=== PATIENT | female | born 1970 | race Caucasian/White ===

== ENCOUNTER 2016-08-17 13:53 | Emergency (ER) | payer OTHER ==
[~2016-08-17] VITALS: Ht 154.9 cm; Wt 87.4 kg
[2016-08-17 14:20] VITALS: TEMP 36.8; Ht 154.9 cm; Wt 87.4 kg
[2016-08-17] MEDS ORDERED: GABA-112 PO (14:29)
[2016-08-17] MEDS ORDERED: SITA25TA PO (14:29)
[2016-08-17] MEDS ORDERED: METF-384 PO (14:29)
[2016-08-17] MEDS ORDERED: CANA1TAB PO (14:29)
[2016-08-17] MEDS ORDERED: CEPH500C PO (14:46)
--- NOTE | 2016-08-17 14:59 | EMERGENCY ROOM VISIT NOTE ---
History First contact with patient: 14:35 Chief Complaint: EYE ASSESSMENT Stated Complaint: LEFT EYE PAIN/RED AND PUFFY History of Present Illness The patient is a 46 year old female who presents to the Emergency Room with complaints of pain, redness and swelling of the left upper eyelid. The patient noticed the pain and swelling 2 days ago. Her daughter thinks it is a stye. She reports that the eye is irritated when blinking. She has not noticed any drainage, excessive tearing or blurred vision. The patient reports that she has had several styes in the same eye, but not at the same area. The patient rates her discomfort a 6 out of 10. Review of Systems 10 system review was performed and was negative except for pertinent positives and negatives as indicated in history of present illness Past Medical/Surgical History Medical Problems: (1) No significant past medical history Surgical Problems: (1) No history of previous surgery Family History FH: diabetes mellitus FH: hypertension Kidney stones Social History Smoking Status: Never Smoker Alcohol Use: none Marital Status: Occupation Status: unemployed Current/Historical Medications Scheduled Canagliflozin (Invokana), Unknown Dose PO DAILY Cephalexin Monohydrate (Keflex), 500 MG PO QID Gabapentin (Neurontin), Unknown Dose PO BID Metformin Hcl (Glucophage), 1,000 MG PO BID Sitagliptin Phosphate (Januvia), Unknown Dose PO DAILY Allergies Coded Allergies: No Known Allergies (Unverified , 08/17/16) Physical Exam Vital Signs Date Time Temp Pulse Resp B/P Pulse Ox O2 Delivery O2 Flow Rate FiO2 08/17/16 14:20 36.8 83 17 144/86 99 Room Air Right Eye Acuity: 20/20 (uncorrected) Left Eye Acuity: 20/25 (affected/uncorrected) Physical Exam CONSTITUTIONAL: Healthy and well nourished. Alert and oriented X 3 with positive affect. HEENT: Normocephalic, atraumatic. Pupils equal, round and reactive. No scleral icterus or significant conjunctival injection of the left eye. There is no purulent drainage. The patient has an internal hordeolum of the upper medial eyelid. The remainder of the eyelid is also edematous and erythematous. She has mild tenderness to palpation laterally of the upper eyelid. There is no additional periorbital edema. EOMs does not cause any discomfort. NECK: Full active range of motion without discomfort. LYMPHATICS: No cervical chain adenopathy. RESPIRATORY: Clear to auscultation bilaterally with no wheezing, crackles, rhonchi or stridor. CARDIOVASCULAR: Regular rate and rhythm with no murmurs, rubs or gallops. INTEGUMENTARY: No rash or other significant dermatologic conditions noted. NEUROLOGIC: No focal neurologic deficits noted. Medical Decision & Procedures ED Course Patient history and physical exam were performed. Nurse's notes were reviewed. Visual acuity is also normal. History and clinical exam findings are consistent with an internal hordeolum of the left upper eyelid. I am somewhat concerned about the amount of edema and erythema of the lateral margin of the lid, therefore I elected to also treat the patient with Keflex antibiotics. She was instructed to apply warm moist compress to the eye. Ibuprofen and Tylenol in alternating fashion as needed for pain. She was instructed to follow -up with her eye doctor if no significant improvement within the next week. The patient was happy with plan of care, voiced understanding of all discharge instructions, refused any analgesics, and denied any significant pain at the time of discharge. She was dispensed some Lacri-Lube that she may also use for discomfort. Medical Decision Impression Primary Impression: Hordeolum of left upper eyelid Departure Information Dispostion Home / Self-Care Prescriptions Cephalexin Monohydrate (Keflex) 500 Mg Cap 500 MG PO QID for 7 Days, #28 CAP Prov: Rick Gamble PA 08/17/16 Forms HOME CARE DOCUMENTATION FORM, IMPORTANT VISIT INFORMATION Patient Instructions My [facility], ED Hordeolum Additional Instructions Complete all Keflex antibiotics as prescribed. Apply warm moist compresses to help promote drainage. Ibuprofen 800 mg and/or Tylenol 1000 mg every 8 hours. You may also alternate these medications for more effective pain relief: Ibuprofen --4 HRS--> Tylenol --4 HRS--> ibuprofen --4 HRS--> Tylenol .... Follow-up with your eye doctor if symptoms are not improving within the next 5- 7 days. Problem Qualifiers Primary Impression: Hordeolum of left upper eyelid Hordeolum type: internum Qualified Codes: H00.024 - Hordeolum internum left upper eyelid
[2016-08-17] MEDS ORDERED: ARTIFICIAL TEARS OP OINT 3.5 GM TUBE OP ONE (15:00)
[2016-08-17 15:08] VITALS: BP 144/86; PULSE 83; O2SAT 99
== END 2016-08-17 15:09 | disposition home or self-care (01) ==
LOC: C.EDB 13:56 → C.EDD 15:09
DX: H00.024 Hordeolum internum left upper eyelid (principal); Z79.899 Other long term (current) drug therapy; Z83.3 Family history of diabetes mellitus; Z82.49 Family history of ischemic heart disease and other diseases of the circulatory system; Z84.1 Family history of disorders of kidney and ureter

== ENCOUNTER 2022-09-07 11:12 | Inpatient (IN) ==
[2022-09-07] MEDS ORDERED: VANCOMYCIN CONSULT ACTIVE PRN (11:34)
[2022-09-07] MEDS ORDERED: VANCOMYCIN HCL 1,750 MG in SODIUM CHLORIDE 0.9% 500 ML IV ONE (11:34)
[2022-09-07] MEDS ORDERED: cefTRIAXone SODIUM 2,000 MG/70 ML BAG IV STA (11:36)
--- NOTE | 2022-09-07 11:39 | Emergency Department Note ---
Impression & Plan Type 2 diabetes mellitus with right diabetic foot infection, Acute hyperglycemia, Cellulitis ED Provider Note NAME: VALENTIN ASHLEY AGE: 52 SEX: F : 1970 ARRIVES VIA: Walk-In INFORMANT: Patient ED PROVIDER(S): Johan Rao DO CHIEF COMPLAINT: infection of foot HPI: Patient is a 52-year-old female who presents ER with past medical history of diabetes and hypertension for infection of her right first metatarsal and distal aspect. Is open wound with surrounding erythema and bulging. Patient denies any headache or change in vision. She has been feeling hot and cold but no recorded fevers. No belly pain nausea vomiting or diarrhea. No dysuria urgency or frequency. Has had increased swelling over the past 24 hours. PAST MEDICAL HISTORY:See Below PAST SURGICAL HISTORY:See Below FAMILY HISTORY:See Below SOCIAL HISTORY:See Below HOME MEDICATIONS:See Below ALLERGIES:See Below VITALS:See Below PHYSICAL EXAMINATION: GENERAL: Sitting up in bed, alert, well appearing, well nourished, no distress, non-toxic EYE EXAM: normal conjunctiva. OROPHARYNX: no exudate, no erythema, lips, buccal mucosa, and tongue normal and mucous membranes are moist NECK: supple, no nuchal rigidity, no adenopathy, non-tender LUNGS: Clear to auscultation. Normal chest wall mechanics HEART: no murmurs, S1 normal and S2 normal ABDOMEN: abdomen soft, non-tender, normo-active bowel sounds, no masses, no doug ound or guarding. UPPER EXTREMITIES: upper extremities are grossly normal. LOWER EXTREMITIES: Flexion-extension bilateral hips knees ankles and EHL intact. Ulcer at the base of the first right metatarsal. Surrounding erythema and induration NEURO EXAM: Normal sensorium, cranial nerves II-XII grossly intact, normal speech, no gross weakness of arms, no gross weakness of legs. MEDICAL DECISION MAKING: Patient is a 52-year-old female who presents ER for wound on her right foot. She was seen by Dr. Mcmanus from podiatry as an outpatient referred over. IV was established blood work was obtained. External records were reviewed. Labs show leukocytosis of 15,000. No significant anemia. BMP with elevated glucose at 105. LFTs bilirubin lipase is unremarkable. COVID was negative. X-rays showed questionable osteo. Patient was given IV Rocephin and vancomycin. Updated bedside. Discussed with Dr. Orellana in regards to admission and further work-up. Discussed with Dr. Mcmanus as well in regards to treatment. He recommended admission IV antibiotics and he will consult. Triage Nursing notes reviewed. Limited review of prior medical records performed Vital Signs: reviewed and remarkable for no significant abnormalities Differential diagnosis: Cellulitis, abscess, MRSA infection, osteomyelitis, DVT, necrotizing fasciitis, dermatitis, drug eruption, allergic reaction, as well as other pathologies. ER treatment provided: See below Diagnostics interpreted by me include EKG and cardiac monitoring as listed below: -Cardiac Monitoring: An order was placed for continuous cardiac monitoring. The monitor shows a rate of 92 with sinus rhythm. -ECG: none -Laboratory studies:Interpreted by me as stated above in MDM and shown below. Imaging studies: Xrays: As interpreted by me: X-ray of the right foot shows questionable osteo CTs show: none Consultation(s): As described in MDM Procedures:none Critical Care: None Past Med/Surg History Medical History (Updated 09/07/22 @ 13:58 by Tiffanie Hoffmann PA-C) Eustachian tube dysfunction Social History Smoking Status: Never smoker Preferred Language: Filipino Feels Safe at Home: Yes Allergies Allergies Allergy/AdvReac Type Severity Reaction Status Date / Time No Known Allergies Allergy Unverified 09/07/22 12:53 Home Meds Home Medications Medication Instructions Recorded Confirmed canagliflozin 100 mg tablet 100 mg PO DAILY 09/07/22 09/07/22 (Invokana) diclofenac sodium 50 mg 50 mg PO TID 09/07/22 09/07/22 tablet,delayed release dulaglutide 1.5 mg/0.5 mL 1.5 mg subcut WE 09/07/22 09/07/22 subcutaneous pen injector (Trulicity) duloxetine 30 mg capsule,delayed 30 mg PO DAILY 09/07/22 09/07/22 release gabapentin 600 mg tablet 600 mg PO QID 09/07/22 09/07/22 insulin glargine 100 unit/mL (3 35 unit subcut BID 09/07/22 09/07/22 mL) subcutaneous pen (Lantus Solostar U-100 Insulin) losartan 25 mg tablet 25 mg PO DAILY 09/07/22 09/07/22 metformin 1,000 mg tablet 1,000 mg PO BID 09/07/22 09/07/22 simvastatin 10 mg tablet 10 mg PO DAILY 09/07/22 09/07/22 Results & Data (ED) Vital Signs Vital Signs - 24 hr 09/07/22 11:22 09/07/22 12:30 09/07/22 12:32 Temperature 36.5 C Temperature Source Temporal Artery Scan Pulse Rate 112 H 104 H 104 H Pulse Rate from SpO2 Sensor Pulse Rhythm Regular Respiratory Rate 20 20 Respiratory Effort / Characteristics Non-Labored Spontaneous Respiratory Depth Normal Blood Pressure 122/73 Blood Pressure Mean 89 Pulse Oximetry 96 96 Oxygen Delivery Method Room Air Room Air Sepsis New/Unexplained Change in Mental Status N/A Sepsis Action Taken by Nursing No Action Required 09/07/22 12:30 Temperature Temperature Source Pulse Rate 98 H Pulse Rate from SpO2 Sensor 96 H Pulse Rhythm Respiratory Rate 20 Respiratory Effort / Characteristics Respiratory Depth Blood Pressure 105/74 Blood Pressure Mean 84 Pulse Oximetry 95 Oxygen Delivery Method Sepsis New/Unexplained Change in Mental Status Sepsis Action Taken by Nursing Laboratory Data 09/07/22 12:20 09/07/22 12:20 Lab Results 09/07/22 09/07/22 09/07/22 Range/Units 12:18 12:20 12:20 WBC 15.63 H (4.8-10.8) K/ul RBC 4.54 (4.20-5.40) M/uL Hgb 14.4 (12.0-16.0) g/dl Hct 41.3 (37.0-47.0) % MCV 91.0 (80.0-100.0) fL MCH 31.7 (25.0-34.0) pg MCHC 34.9 (32.0-36.0) g/dL RDW Std Deviation 40.0 (36.4-46.3) fL RDW Coeff of [place] 12.1 (11.5-14.5) % Plt Count 180 (130-400) K/uL MPV 11.1 (9.4-12.4) fL Immature Gran % (Auto) 0.5 % Neut % (Auto) 82.2 % Lymph % (Auto) 8.5 % [place] % (Auto) 8.4 % Eos % (Auto) 0.1 % Baso % (Auto) 0.3 % Neut # (Auto) 12.86 H (1.40-6.50) K/uL Lymph # (Auto) 1.33 (1.2-3.4) K/uL [place] # (Auto) 1.31 H (0.11-0.59) K/uL Eos # (Auto) 0.01 (0-0.50) K/uL Baso # (Auto) 0.04 (0-0.2) K/uL Immature Gran # (Auto) 0.08 (0.01-0.20) K/uL Sodium 132 L (136-145) mmol/L Potassium 3.9 (3.5-5.1) mmol/L Chloride 98 (98-107) mmol/L Carbon Dioxide 24 (21-32) mmol/L Anion Gap 10 (3-11) BUN 11 (6-23) mg/dl Creatinine 1.00 (0.6-1.2) mg/dl Est Cr Clr Drug Dosing 65.4 ml/min Est GFR ( Amer) 74.5 ml/min Est GFR (Non-Af Amer) 64.3 ml/min BUN/Creatinine Ratio 11.0 (10-20) Glucose 315 H* (70-99(Fasting)) mg/dl Calcium 9.6 (8.6-10.3) mg/dl Total Bilirubin 2.9 H (0.2-1.0) mg/dl AST 14 (13-39) U/L ALT 14 (7-52) U/L Alkaline Phosphatase 67 (34-104) U/L Total Protein 7.9 (6.0-8.3) gm/dl Albumin 4.1 (3.4-5.0) gm/dl Globulin 3.8 (2.5-4.0) gm/dl Albumin/Globulin Ratio 1.1 (0.9-2) Lipase 25 (11-82) U/L SARS-CoV-2, RNA, NAAT NEGATIVE (NEGATIVE) Administered Medications Vancomycin HCl 1,750 mg/ (Sodium Chloride) 535 mls @ 200 mls/hr IV NOW ONE Stop: 09/07/22 14:14 Last Admin: 09/07/22 13:03 Dose: 200 mls/hr Documented By: VICKEY Discontinued Medications Ceftriaxone Sodium (Rocephin) 2,000 mg in 70 mls @ 140 mls/hr IV NOW STA Stop: 09/07/22 12:05 Last Infusion: 09/07/22 13:00 Dose: 0 mls/hr Documented By: Admin: 09/07/22 12:30 Dose: 140 mls/hr Documented By: VICKEY Imaging Data Radiologist's Impression: Toe X-Ray 09/07/22 11:39 XR toe(s) RT min 2V HISTORY: 52 years-old Female 1st metatarsal ulcer questionable osteo chronic right foot pain with soft tissue ulcer COMPARISON: None TECHNIQUE: 3 views of the right great toe FINDINGS: Hallux valgus with first metatarsal head bunion. 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 Moderate soft tissue swelling of the forefoot is most pronounced surrounding the first MTP joint. No acute fracture, dislocation or osseous erosion identified involving the first digit. Suspected subtle periarticular erosions within the second metatarsal head seen best on the oblique image. IMPRESSION: 1. Moderate soft tissue swelling without acute fracture, dislocation or osseous erosion identified within the first digit. 2. Hallux valgus with first metatarsal head bunion. 3. Suggestion of subtle periarticular erosions within the second metatarsal head. Correlate clinically to exclude an inflammatory or crystalline art hropathy. Acute osteomyelitis considered less likely. ACT 112: Negative or not required by law. The above report was generated using voice recognition software. It may contain grammatical, syntax or spelling errors. Electronically signed by: Chilo Shore M.D. 09/07/2022 12:26 PM Discharge Plan Visit Data Chief Complaint: Infection, Wound Stated Complaint: DIABETIC WOUND ON FOOT, INFECTION ED Provider: Johan Rao Discharge Problem: Type 2 diabetes mellitus with right diabetic foot infection, Acute hyperglycemia, Cellulitis Forms Stand Alone Forms: My [facility] [employer] Prescriptions Prescriptions: No Action insulin glargine [Lantus Solostar U-100 Insulin] 100 unit/mL (3 mL) insulin pen 35 unit SUBCUT BID gabapentin 600 mg tablet 600 mg PO QID simvastatin 10 mg tablet 10 mg PO DAILY metformin 1,000 mg tablet 1,000 mg PO BID losartan 25 mg tablet 25 mg PO DAILY diclofenac sodium 50 mg tablet,delayed release (DR/EC) 50 mg PO TID duloxetine 30 mg capsule,delayed release(DR/EC) 30 mg PO DAILY Invokana 100 mg tablet 100 mg PO DAILY Trulicity 1.5 mg/0.5 mL pen injector 1.5 mg SUBCUT WE Referrals Referrals: Spencer Son D.O. [Primary Care Provider] -
--- NOTE | 2022-09-07 12:28 | XRay Report ---
XR toe(s) RT min 2V HISTORY: 52 years-old Female 1st metatarsal ulcer questionable osteo chronic right foot pain with so ft tissue ulcer COMPARISON: None TECHNIQUE: 3 views of the right great toe FINDINGS: Hallux valgus with first metatarsal head bunion. 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 Moderate soft tissue swelling of the forefoot is most pronounced surrounding the first MTP joint. No acute fracture, dislocation or osseous erosion identified involving the first digit. Suspected subtle periarticular erosions within the second metatarsal head seen best on the oblique image. IMPRESSION: 1. Moderate soft tissue swelling without acute fracture, dislocation or osseous erosion identified wi thin the first digit. 2. Hallux valgus with first metatarsal head bunion. 3. Suggestion of subtle periarticular erosions within the second metatarsal head. Correlate clinicall y to exclude an inflammatory or crystalline arthropathy. Acute osteomyelitis considered less likely. ACT 112: Negative or not required by law. The above report was generated using voice recognition software. It may contain grammatical, syntax o r spelling errors. Electronically signed by: Chilo Shore M.D. 09/07/2022 12:26 PM
[2022-09-07 12:51] LABS: Basophils # (auto) 0.04 K/uL (0-0.2); Basophils % (auto) 0.3 %; Eosinophils # (auto) 0.01 K/uL (0-0.50); Eosinophils % (auto) 0.1 %; Hematocrit (blood only) 41.3 % (37.0-47.0); Hemoglobin 14.4 g/dl (12.0-16.0); Immature Granulocytes # (auto) 0.08 K/uL (0.01-0.20); Immature Granulocytes % (auto) 0.5 %; Lymphocytes # (auto) 1.33 K/uL (1.2-3.4); Lymphocytes % (auto) 8.5 %; Mean Corpuscular Hemoglobin 31.7 pg (25.0-34.0); Mean Corpuscular Hgb Conc 34.9 g/dL (32.0-36.0); Mean Platelet Volume 11.1 fL (9.4-12.4); Monocytes # (auto) 1.31 K/uL (0.11-0.59); Monocytes % (auto) 8.4 %; Neutrophils # (auto) 12.86 K/uL (1.40-6.50); Neutrophils % (auto) 82.2 %; Platelet Count 180 K/uL (130-400); RDW Coefficient of Variation 12.1 % (11.5-14.5); Red Blood Count 4.54 M/uL (4.20-5.40); White Blood Count 15.63 K/ul (4.8-10.8)
[2022-09-07 13:12] LABS: Albumin Globulin Ratio 1.1 (0.9-2); Albumin Level 4.1 gm/dl (3.4-5.0); Bilirubin,Total 2.9 mg/dl (0.2-1.0); Calcium 9.6 mg/dl (8.6-10.3); Creatinine Clr Calc Pharmacy 65.4 ml/min; Est GFR (African American) 74.5 ml/min; Est GFR (Non-African American) 64.3 ml/min; Globulin 3.8 gm/dl (2.5-4.0); Potassium 3.9 mmol/L (3.5-5.1); Total Protein 7.9 gm/dl (6.0-8.3)
--- NOTE | 2022-09-07 13:20 | History & Physical Report ---
Date of Service September 07, 2022 Assessment & Plan (1) Sepsis: (2) Type 2 diabetes mellitus with right diabetic foot infection: Plan: - Admit to med surg with tele - Follow Blood cx x 2, lactic acid ordered, WBC is 15.63, neuts 12.86, BP is soft at 105/74 and HR 104 - Will start NSS 150 ml/hr now, possible early sepsis with tachycardia and soft BP. Pt states she did take all her medication this morning including losartan and insulin. Pt has not eat today - Started vanc and ceftriaxone IV in the ER, continue - Consult ortho - Dr. Mcmanus for possible debridement, will make NPO at midnight and allow HH/DM diet today - Pt denies acute pain, can use tylenol if needed for such - Check CXR and EKG for preop purposes (3) Diabetes: Plan: - Glucose is > 300, will administer 10 U insulin now - Continue lantus at 15 U BID ( Reduced from 35) with ISS with accuchecks - Check A1C - Holding invokana, metformin and trulicity (takes on Mondays) (4) Hypertension: Plan: - Hold losartan with soft BP (5) Obesity (BMI 30-39.9): Plan: - BMI 36.5, diet and exercise to be encouraged DVT ppx: - billie santiagos CODE: Full code Dispo: From home, likely to remain in the hospital x 1-2 days A total of 75 minutes were spent with greater than 50% of that time face to face with the patient, personally reviewing all current laboratories, imaging studies, past medication reconciliation, outpatient chart review, and discussion with specialists to collaborate care for the patient with attending. Please see attending documentation for corrections and/or additions. History of Present Illness Chief Complaint: Foot infection Primary Care Provider: Spencer Son This is a 52-year-old female with PMHx of DM II, HTN, who presents from Dr. Mcmanus's office for infection of her right first metatarsal and distal aspect, XRay of the foot shows edema in the R first metatarsal with edema but shows possible bony abnormality of the second metatarsal head concerning for crystalline arthropathy vs acute osteomyelitis. Pt reports that last Monday (8d ago) she developed an area on her callous of the right first metatarsal head that became open and cracked. She states this has occurred in the past but normally heals. Yesterday the right forefoot region became red and swollen. She has been able to walk on it and denies neuropathy. She denies any fever, chills or sweats, but states in the past 3 days has had body aches, generalized fatigue and not felt herself. Pt called Dr. Mcmanus yesterday who saw her in the outpatient office this morning. She has been referred to the ER for antibiotic therapy. There is another area on the left foot, first metatarsal callous which is also cracked open, however isn't swollen or red. Pt is present with her at bedside, but nearly asleep. Of note, the patient has a ankle monitoring device on her left leg, states she is on probation x 4 months. She has made the surveillance sensor officer aware that she is here in the hospital. Denies any tobacco use, illicit drug use, marijuana or recreational drug use, or alcohol use. Allergies Allergy/AdvReac Type Severity Reaction Status Date / Time lisinopril Allergy Intermediate Cough Uncoded 09/07/22 14:30 Home Medications Medication Instructions Recorded Confirmed Type canagliflozin 100 mg tablet 100 mg PO DAILY 09/07/22 09/07/22 History (Invokana) diclofenac sodium 50 mg 50 mg PO TID 09/07/22 09/07/22 History tablet,delayed release dulaglutide 1.5 mg/0.5 mL 1.5 mg subcut WE 09/07/22 09/07/22 History subcutaneous pen injector (Trulicity) duloxetine 30 mg capsule,delayed 30 mg PO DAILY 09/07/22 09/07/22 History release gabapentin 600 mg tablet 600 mg PO QID 09/07/22 09/07/22 History insulin glargine 100 unit/mL (3 35 unit subcut BID 09/07/22 09/07/22 History mL) subcutaneous pen (Lantus Solostar U-100 Insulin) losartan 25 mg tablet 25 mg PO DAILY 09/07/22 09/07/22 History metformin 1,000 mg tablet 1,000 mg PO BID 09/07/22 09/07/22 History simvastatin 10 mg tablet 10 mg PO DAILY 09/07/22 09/07/22 History Past Med/Surg History Medical History (Updated 09/07/22 @ 20:25 by Karolina Orellana DO) Diabetes Eustachian tube dysfunction Hypertension Surgical History (Updated 09/07/22 @ 14:15 by Tiffanie Hoffmann PA-C) History of bunionectomy of left great toe Hx of tubal ligation Family History (Updated 09/07/22 @ 14:16 by Tiffanie Hoffmann PA-C) Mother Diabetes Social History (Updated 09/07/22 @ 14:16 by Tiffanie Hoffmann PA-C) Smoking Status: Never smoker Hx Alcohol Use: No Preferred Language: [place] Feels Safe at Home: Yes Review of Systems Review of Systems: Constitutional: No fever, sweats or chills, + generalized ill feeling Eyes: No diplopia, no worsening or blurred vision ENT: normal hearing, no trouble swallowing, + partial teeth plate Respiratory: No cough, sputum, dyspnea at rest or on exertion Cardiovascular: No chest pain, tightness or palpitations Abdomen: No pain, nausea, vomiting, diarrhea or constipation Musculoskeletal: R foot with callous with open wound on plantar surface, as per HPI, Left foot with cracked callous on it, No joint pain, calf pain, swelling Neurologic: No weakness, numbness/tingling, or balance problems Psychiatric: + anxiety and depression on medication Skin: No rash or itch Physical Exam Physical Exam: General: awake, alert, no apparent distress, + obese with BMI of 36.5 Head: Normocephalic, atraumatic ENT: PERRL, EOMI, no pharyngeal exudate, mucous membranes moist Chest: Clear to auscultation, on room air, no adventitious breath sounds Cardiac: Regular rate and rhythm, no murmur, no JVD, normal peripheral pulses, good capillary refill Abdominal: NABS x 4 quadrants, soft, nondistended, nontender to palpation, no rebound or guarding Extremities: R forefoot erythematous, edema over the 1st right metarsal region, + open wound on plantar surface of the foot about 1 cm in diameter, black in the middle, no purulent material draining from such, increased ecchymosis on the medial side of the foot proximal to the metatarsal head. Left foot callous is cracked, no erythema or edema. Let ankle with house arrest bracelet in place. Otherwise normal inspection, no peripheral edema or erythema, calfs nontender to palpation Psych: Normal mood and affect Neuro: AAO x 3, strength intact bilaterally and rated 5/5, no motor deficits, speech is clear, no peripheral sensory deficits Results & Data Results & Data Vital Signs (Past 12 Hours) Vital Signs Temp Pulse Resp BP Pulse Ox O2 Del Method 09/07/22 12:30 98 H 20 105/74 95 09/07/22 12:32 104 H 09/07/22 12:30 104 H 20 96 Room Air 09/07/22 11:22 36.5 C 112 H 20 122/73 96 Room Air Laboratory Results 09/07/22 12:20 Aerobic Blood Culture - Pending Blood Anaerobic Blood Culture - Pending 09/07/22 12:21 Aerobic Blood Culture - Pending Blood Anaerobic Blood Culture - Pending 09/07/22 09/07/22 09/07/22 12:20 12:20 12:18 WBC 15.63 H RBC 4.54 Hgb 14.4 Hct 41.3 MCV 91.0 MCH 31.7 MCHC 34.9 RDW Std Deviation 40.0 RDW Coeff of [place] 12.1 Plt Count 180 MPV 11.1 Immature Gran % (Auto) 0.5 Neut % (Auto) 82.2 Lymph % (Auto) 8.5 Chase % (Auto) 8.4 Eos % (Auto) 0.1 Baso % (Auto) 0.3 Neut # (Auto) 12.86 H Lymph # (Auto) 1.33 [place] # (Auto) 1.31 H Eos # (Auto) 0.01 Baso # (Auto) 0.04 Immature Gran # (Auto) 0.08 Sodium 132 L Potassium 3.9 Chloride 98 Carbon Dioxide 24 Anion Gap 10 BUN 11 Creatinine 1.00 Est Cr Clr Drug Dosing 65.4 Est GFR ( Amer) 74.5 Est GFR (Non-Af Amer) 64.3 BUN/Creatinine Ratio 11.0 Glucose 315 H* Calcium 9.6 Total Bilirubin 2.9 H AST 14 ALT 14 Alkaline Phosphatase 67 Total Protein 7.9 Albumin 4.1 Globulin 3.8 Albumin/Globulin Ratio 1.1 Lipase 25 SARS-CoV-2, RNA, NAAT NEGATIVE Diagnostic Findings Toe X-Ray 09/07/22 11:39 XR toe(s) RT min 2V HISTORY: 52 years-old Female 1st metatarsal ulcer questionable osteo chronic right foot pain with soft tissue ulcer COMPARISON: None TECHNIQUE: 3 views of the right great toe FINDINGS: Hallux valgus with first metatarsal head bunion. 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 Moderate soft tissue swelling of the forefoot is most pronounced surrounding the first MTP joint. No acute fracture, dislocation or osseous erosion identified involving the first digit. Suspected subtle periarticular erosions within the second metatarsal head seen best on the oblique image. IMPRESSION: 1. Moderate soft tissue swelling without acute fracture, dislocation or osseous erosion identified within the first digit. 2. Hallux valgus with first metatarsal head bunion. 3. Suggestion of subtle periarticular erosions within the second metatarsal head. Correlate clinically to exclude an inflammatory or crystalline arthropathy. Acute osteomyelitis considered less likely. ACT 112: Negative or not required by law. The above report was generated using voice recognition software. It may contain grammatical, syntax or spelling errors. Electronically signed by: Chilo Shore M.D. 09/07/2022 12:26 PM Code Status & VTE Plan Code Status Full code VTE Prophylaxis Plan VTE Prophylaxis will be ordered: Yes Supervising Physician Co-Signing Physician Notes I have seen and examined the patient and have discussed the case with the provider above. I agree with the assessment and plan as stated. Diabetic female presents with 3 days of illness and erythema/swelling in her right foot. There is a plantar wound as a likely source on the right foot. She has another plantar wound on the left foot that is not inflamed or infectious appearing. She is tachycardic but otherwise in no acute distress. Physical exam is otherwise unremarkable aside from the erythema which is spreading to her distal ankle on the dorsal side of her foot. There is no drainage of the wound at this time. Work-up includes CBC revealing leukocytosis CBC revealing leukocytosis with a left shift, hyponatremia with a sodium of 132 and otherwise electrolytes and kidney function are normal. She has hyperglycemia and is an uncontrolled diabetic at baseline. She has an elevated total bilirubin of 2.9. Outpatient records are unable for review at this time. Otherwise LFTs are normal. There is no evidence of obstructive jaundice or pain in her abdomen at this time. She has evidence of bacteria on urinalysis however this may be a contaminant. 1. diabetic foot wound with infection and cellulitis of right foot. 2. Possible sepsis-resuscitated 3. Uncontrolled diabetes with hyperglycemia 4. Hyperbilirubinemia Agree with broad-spectrum antibiotics pending culture results and clinical improvement. Appreciate podiatry input regarding her foot wound. We will continue aggressive insulin management for euglycemia. Evaluate medications for adjustment at discharge if needed. Notably patient states that Ozempic worked better for her than insulin, however, there are financial obstacles for her to receiving it at this time. Repeat CMP in a.m. to monitor bilirubin and electrolytes. Esteban, DO
[2022-09-07] MEDS ORDERED: SODIUM CHLORIDE 0.9% 500 ML IV SCH (14:00)
[2022-09-07] MEDS ORDERED: INSULIN ASPART PER UNIT CHARGE SC STA (14:21)
--- NOTE | 2022-09-07 14:46 | XRay Report ---
XR chest 1V portable HISTORY: 52 years-old Female preop preoperative exam COMPARISON: None TECHNIQUE: AP view of the chest FINDINGS: Cardiomediastinal and hilar silhouettes are within normal limits. No pneumothorax, pleural effusion, airspace consolidation or pulmonary edema. Bones of the chest appear grossly intact. IMPRESSION: No acute process. ACT 112: Negative or not required by law. The above report was generated using voice recognition software. It may contain grammatical, syntax o r spelling errors. Electronically signed by: Chilo Shore M.D. 09/07/2022 2:45 PM
--- NOTE | 2022-09-07 16:35 | Electrocardiogram Report ---
Test Reason : Blood Pressure : / mmHG Vent. Rate : 098 BPM Atrial Rate : 098 BPM P-R Int : 146 ms QRS Dur : 082 ms QT Int : 356 ms P-R-T Axes : 029 -01 018 degrees QTc Int : 454 ms Normal sinus rhythm Normal ECG No previous ECGs available Confirmed by Osorio Mattson ([id number]) on 09/07/2022 4:34:40 PM Referred By: REFERRED SELF Confirmed By:Osorio Mattson
[2022-09-07 18:25] LABS: Appearance Urine Cloudy (Clear); Bacteria Urine Automated 1+ (Negative); Bilirubin Urine Negative (Negative); Blood Urine Negative (Negative); Color Urine Orange; Epithelial Cell Urine Auto >30 /lpf (0-5); Glucose Urine UA 3+ (Negative); Ketones Urine Trace (Negative); Leukocyte Esterase Urine Trace (Negative); Nitrite Urine Negative (Negative); Protein Urine Negative (Negative); RBC Urine Automated 0-4 /hpf (0-4); Specific Gravity Urine 1.045 (1.000-1.030); Urobilinogen Urine Negative (Negative)
[2022-09-07] MEDS: INSULIN ASPART PER UNIT CHARGE SC SCH ×2 (18:56→20:48)
[2022-09-07] MEDS ORDERED: ONDANSETRON INJ 2 MG/ML 2 ML VIAL IV PRN (19:21)
[2022-09-07] MEDS ORDERED: GLUCOSE 10 TAB/TUBE PO PRN (19:21)
[2022-09-07] MEDS ORDERED: CARBOHYDRATES FOR HYPOGLYCEMIA PO PRN (19:21)
[2022-09-07] MEDS ORDERED: MAGNESIUM HYDROXIDE SUSP 30 ML UDC PO PRN (19:21)
[2022-09-07] MEDS ORDERED: INSULIN ASPART PER UNIT CHARGE SC SCH (19:21)
[2022-09-07] MEDS ORDERED: GLUCAGON FOR INJ 1 MG VIAL SQ PRN (19:21)
[2022-09-07] MEDS ORDERED: POLYETHYLENE (MIRALAX) 17 GM PACK PO PRN (19:21)
[2022-09-07] MEDS ORDERED: ALUMINUM/MAGNESIUM SUSP 30 ML UDC PO PRN (19:21)
[2022-09-07] MEDS ORDERED: GLUCOSE 40% GEL 15 GM TUBE PO PRN (19:21)
[2022-09-07] MEDS ORDERED: DEXTROSE 50% 50 ML SYRINGE IV PRN (19:21)
--- NOTE | 2022-09-07 19:39 | Pharmacy Report ---
Pharmacy PK ABX Note - Date of Service September 07, 2022 - Assessment and Plan Assessment 52 year old F receiving IV Vancomycin for treatment of right DM foot infection. PMH DM II, HTN. Blood and urine cultures pending WBC 15.6, afebrile XRay of the foot shows edema in the R first metatarsal with edema but shows possible bony abnormality of the second metatarsal head concerning for crystalline arthropathy vs acute osteomyelitis. Plan Vancomycin * Loading dose: 1750 mg IV x 1 * Maintenance dose: 750 mg IV every 12 hours * Regimen is predicted to achieve target AUC/MARGARETTE of 400-600 mg/L.hr * Will order random level Monday morning if therapy continues and no changes in SCr/maintenance dose. Pharmacy will continue to follow and will adjust dose/frequency as necessary. Thank you. Pharmacy has transitioned to AUC monitoring for vancomycin. AUC/MARGARETTE is the preferred PK/PD target and is associated with decreased risk of nephrotoxicity compared to traditional trough targets.
[2022-09-07] MEDS: SODIUM CHLORIDE 0.9% 1000ML 1,000 ML IV SCH (20:13)
[2022-09-07] MEDS: VANCOMYCIN HCL 750 MG in SODIUM CHLORIDE 0.9% 250 ML IV SCH (20:45)
[2022-09-07] MEDS: GABAPENTIN 600 MG TAB PO SCH ×2 (20:47)
[2022-09-07] MEDS: LANTUS PER UNIT CHARGE SQ SCH (20:48)
--- NOTE | 2022-09-07 22:16 | Orthopedic Consultation ---
Date of Consultation September 07, 2022 Assessment & Plan (1) Type 2 diabetes mellitus with right diabetic foot infection: Patient seen, evaluated, and treated. Reviewed x-ray and x-ray findings. Ordered MRI for further evaluation. Surgical debridement has not been excluded. Thank you for allowing me to participate in the care of this Patient. History of Present Illness Attending Physician: Karolina Orellana DO History of Present Illness Patient is a 52-year-old femaleseen for right foot diabetic foot ulcer. Patient has a past medical history of DM II, and HTN. Patient has history of DFUs. She notes wound open for one week. Patient states past 3 days has had feeling sick with body aches, generalized fatigue and not felt herself. Allergies Allergy/AdvReac Type Severity Reaction Status Date / Time lisinopril Allergy Intermediate Cough Uncoded 09/07/22 14:30 Home Medications Medication Instructions Recorded Confirmed Type canagliflozin 100 mg tablet 100 mg PO DAILY 09/07/22 09/07/22 History (Invokana) diclofenac sodium 50 mg 50 mg PO TID 09/07/22 09/07/22 History tablet,delayed release dulaglutide 1.5 mg/0.5 mL 1.5 mg subcut WE 09/07/22 09/07/22 History subcutaneous pen injector (Trulicity) duloxetine 30 mg capsule,delayed 30 mg PO DAILY 09/07/22 09/07/22 History release gabapentin 600 mg tablet 600 mg PO QID 09/07/22 09/07/22 History insulin glargine 100 unit/mL (3 35 unit subcut BID 09/07/22 09/07/22 History mL) subcutaneous pen (Lantus Solostar U-100 Insulin) losartan 25 mg tablet 25 mg PO DAILY 09/07/22 09/07/22 History metformin 1,000 mg tablet 1,000 mg PO BID 09/07/22 09/07/22 History simvastatin 10 mg tablet 10 mg PO DAILY 09/07/22 09/07/22 History Patient History Medical History Diabetes Eustachian tube dysfunction Hypertension Surgical History History of bunionectomy of left great toe Hx of tubal ligation Family History Mother Diabetes Social History Smoking Status: Never smoker Hx Alcohol Use: No Hx Substance Use: No Preferred Language: Macedonian Beliefs That Will Affect Care: None Current Living Situation: Spouse Feels Safe at Home: Yes Review of Systems Review of Systems: All systems reviewed & are unremarkable except as noted in HPI & below Physical Exam Constitutional: well developed and well nourished Neck: normal visual inspection Respiratory: normal respiratory effort Cardiovascular: Rate/Rhythm: regular rate and regular rhythm Pedal pulses palpable Musculoskeletal: Hallux abducto valgus bilateral Skin: Focused Exam: Wound location:Right submet 1 Wound base color and depth:Full-thickness probing to bone wound size (cm):2.0 x 2.0 x 1.5 cm Odor:Malodorous Drainage:Moderate serous drainage Undermining:None Borders:Macerated Wound location:Left submet 1 Wound base color and depth:Full-thickness Wound size (cm):1.1x 1.1 x 0.2 cm Odor:No malodor Drainage:None Undermining:None Borders:Hyperkeratotic Neurologic: Absent epicritic senstation Psychiatric: Orientation: alert and oriented x 3 Results & Data Vital Signs (Past 12 Hours) Vital Signs Temp Pulse Pulse Resp BP BP Pulse Ox 09/07/22 21:45 96 H 09/07/22 19:49 36.8 C 87 18 112/74 99 09/07/22 17:30 89 18 128/78 99 09/07/22 16:06 87 16 108/65 96 09/07/22 15:07 99 H 16 111/65 96 09/07/22 12:30 98 H 20 105/74 95 09/07/22 12:32 104 H 09/07/22 12:30 104 H 20 96 09/07/22 11:22 36.5 C 112 H 20 122/73 96 O2 Del Method 09/07/22 21:45 09/07/22 19:49 Room Air 09/07/22 17:30 Room Air 09/07/22 16:06 Room Air 09/07/22 15:07 Room Air 09/07/22 12:30 09/07/22 12:32 09/07/22 12:30 Room Air 09/07/22 11:22 Room Air Diagnostic Findings XR toe(s) RT min 2V HISTORY: 52 years-old Female 1st metatarsal ulcer questionable osteo chronic right foot pain with soft tissue ulcer COMPARISON: None TECHNIQUE: 3 views of the right great toe FINDINGS: Hallux valgus with first metatarsal head bunion. 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 Moderate soft tissue swelling of the forefoot is most pronounced surrounding the first MTP joint. No acute fracture, dislocation or osseous erosion identified involving the first digit. Suspected subtle periarticular erosions within the second metatarsal head seen best on the obliqu e image. IMPRESSION: 1. Moderate soft tissue swelling without acute fracture, dislocation or osseous erosion identified within the first digit. 2. Hallux valgus with first metatarsal head bunion. 3. Suggestion of subtle periarticular erosions within the second metatarsal head. Correlate clinically to exclude an inflammatory or crystalline arthropathy. Acute osteomyelitis considered less likely. ACT 112: Negative or not required by law. The above report was generated using voice recognition software. It may contain grammatical, syntax or spelling errors. Electronically signed by: Chilo Shore M.D.
[2022-09-07] MEDS: ACETAMINOPHEN 325 MG TAB PO PRN (23:36)
[2022-09-08] MEDS: SODIUM CHLORIDE 0.9% 1000ML 1,000 ML IV SCH ×2 (03:43→11:41)
[2022-09-08 06:00] LABS: Hematocrit (blood only) 35.7 % (37.0-47.0); Hemoglobin 12.6 g/dl (12.0-16.0); Mean Corpuscular Hemoglobin 32.1 pg (25.0-34.0); Mean Corpuscular Hgb Conc 35.3 g/dL (32.0-36.0); Mean Corpuscular Volume 91.1 fL (80.0-100.0); Mean Platelet Volume 10.9 fL (9.4-12.4); Platelet Count 147 K/uL (130-400); RDW Coefficient of Variation 12.3 % (11.5-14.5); RDW Standard Deviation 40.6 fL (36.4-46.3); Red Blood Count 3.92 M/uL (4.20-5.40)
[2022-09-08 06:30] LABS: Albumin Globulin Ratio 1.1 (0.9-2); Albumin Level 3.4 gm/dl (3.4-5.0); BUN Creatinine Ratio 17.5 (10-20); Bilirubin,Total 1.5 mg/dl (0.2-1.0); Calcium 8.3 mg/dl (8.6-10.3); Creatinine Clr Calc Pharmacy 104.1 ml/min; Est GFR (African American) 118.7 ml/min; Est GFR (Non-African American) 102.4 ml/min; Globulin 3.1 gm/dl (2.5-4.0); Potassium 3.5 mmol/L (3.5-5.1); Total Protein 6.5 gm/dl (6.0-8.3)
[2022-09-08] MEDS: INSULIN ASPART PER UNIT CHARGE SC SCH ×4 (07:53→21:23)
[2022-09-08] MEDS: GABAPENTIN 600 MG TAB PO SCH ×4 (08:17→21:31)
[2022-09-08] MEDS: ACETAMINOPHEN 325 MG TAB PO PRN (08:17)
[2022-09-08] MEDS: VANCOMYCIN HCL 750 MG in SODIUM CHLORIDE 0.9% 250 ML IV SCH (08:18)
[2022-09-08] MEDS: SIMVASTATIN 10 MG TAB PO SCH (08:18)
[2022-09-08] MEDS: LOSARTAN POTASSIUM 25 MG TAB PO SCH (08:18)
[2022-09-08] MEDS: DULoxetine HCL 30 MG CAP PO SCH (08:18)
[2022-09-08] MEDS: LANTUS PER UNIT CHARGE SQ SCH ×2 (08:18→21:31)
[2022-09-08 08:26] LABS: Estimated Average Glucose 212 mg/dl
--- NOTE | 2022-09-08 08:38 | Pharmacy Report ---
Pharmacy PK ABX Note - Date of Service September 08, 2022 - Assessment and Plan Assessment 09/08: SCr 0.63 toady, cultures pending, leukocytosis resolved. With improvement in renal function, current dose is predicting below target AUC/MARGARETTE. Will adjust 09/07: 52 year old F receiving IV Vancomycin for treatment of right DM foot infection. PMH DM II, HTN. Blood and urine cultures pending WBC 15.6, afebrile XRay of the foot shows edema in the R first metatarsal with edema but shows possible bony abnormality of the second metatarsal head concerning for crystalline arthropathy vs acute osteomyelitis. Plan 09/08: Adjust to 1500 mg q12H. Will get random level 4/7 AM 09/07: Vancomycin * Loading dose: 1750 mg IV x 1 * Maintenance dose: 750 mg IV every 12 hours * Regimen is predicted to achieve target AUC/MARGARETTE of 400-600 mg/L.hr * Will order random level Monday morning if therapy continues and no changes in SCr/maintenance dose. Pharmacy will continue to follow and will adjust dose/frequency as necessary. Thank you. Pharmacy has transitioned to AUC monitoring for vancomycin. AUC/MARGARETTE is the preferred PK/PD target and is associated with decreased risk of nephrotoxicity compared to traditional trough targets.
[2022-09-08] MEDS: cefTRIAXone SODIUM 2,000 MG in DEXTROSE 5% 50 ML IV SCH (11:42)
[2022-09-08] MEDS: VANCOMYCIN HCL 1,500 MG in SODIUM CHLORIDE 0.9% 500 ML IV SCH (13:42)
--- NOTE | 2022-09-08 15:55 | Hospitalist Progress Note ---
Date of Service September 08, 2022 Assessment & Plan (1) Sepsis: (2) Type 2 diabetes mellitus with right diabetic foot infection: Plan: Right foot diabetic ulcer --Toe X ray:Moderate soft tissue swelling without acute fracture, dislocation or osseous erosion identified within the first digit. Hallux valgus with first metatarsal head bunion. Suggestion of subtle periarticular erosions within the second metatarsal head. Correlate clinically to exclude an inflammatory or crystalline arthropathy. Acute osteomyelitis considered less likely. -- Blood culture pending MRI foot pending Empirically on vancomycin, Rocephin Appreciate Podiatry Input Continue wound care Continue IV fluids (3) Diabetes: Plan: DM II Uncontrolled HbA1c 9.0 - Continue lantus at 15 U BID ( Reduced from 35) with ISS with accuchecks - Hold home meds-- invokana, metformin and trulicity (takes on Mondays) --Continue insulin per protocol Monitor BGs (4) Hypertension: Plan: - continue losartan (5) Obesity (BMI 30-39.9): Plan: - BMI 36.5, diet and exercise to be encouraged DVT ppx: - teds, scds for now CODE STATUS: Full code Admission and Anticipated Discharge Date Admission Date: September 07, 2022 Subjective Patient is seen and examined at bedside Denies any pain of the right foot Also denies any chest pain, dyspnea, dizziness, nausea, abdominal pain No other complaints Review of Systems Review of Systems: All systems reviewed & are unremarkable except as noted in Subjective Physical Exam Physical Exam: Physical Exam: Vitals signs as noted above General Appearance:Obese, no apparent distress Head: normocephalic, Atraumatic Eyes: normal inspection, EOMI Neck: supple, Trachea midline Respiratory/Chest: Normal breath sounds, CTA, No accessory muscle use Cardiovascular: S1, S2, No murmur Abdomen/GI:Soft, Non tender, Bowel sounds present Extremities/Musculoskeletal:normal inspection, pedal edema, + erythematous, macerated, nontender right foot ulcer at the base of first metatarsal Neurologic/Psych:AAOX3, grossly no focal neurological deficits Skin: normal color, warm Results & Data Results & Data Vital Signs (Past 12 Hours) Vital Signs Temp Pulse Pulse Resp BP Pulse Ox O2 Del Method 09/08/22 11:31 36.7 C 95 H 16 108/74 95 Room Air 09/08/22 07:30 90 09/08/22 07:39 37.4 C 93 H 18 123/76 98 Room Air 09/08/22 04:00 36.8 C 87 19 103/68 98 Room Air Laboratory Results Short CBC 09/08/22 Range/Units 05:24 WBC 10.60 (4.8-10.8) K/ul Hgb 12.6 (12.0-16.0) g/dl Hct 35.7 L (37.0-47.0) % Plt Count 147 (130-400) K/uL BMP 09/08/22 05:24 Sodium 138 Potassium 3.5 Chloride 107 Carbon Dioxide 23 BUN 11 Creatinine 0.63 D Glucose 105 H Calcium 8.3 L Liver Function 09/08/22 Range/Units 05:24 Total Bilirubin 1.5 H (0.2-1.0) mg/dl AST 12 L (13-39) U/L ALT 10 (7-52) U/L Alkaline Phosphatase 49 (34-104) U/L Albumin 3.4 (3.4-5.0) gm/dl Urine 09/07/22 Range/Units 17:51 Urine Color [place] Urine Appearance Cloudy A (Clear) Urine pH 5.0 (4.5-7.5) Ur Specific [place] 1.045 H (1.000-1.030) Urine Protein Negative (Negative) Urine Glucose (UA) 3+ H (Negative)
[2022-09-08] MEDS ORDERED: GADOBUTROL 65ML VIAL IV ONE (17:29)
--- NOTE | 2022-09-08 18:08 | Magnetic Resonance Report ---
MR foot RT wo/w con CLINICAL HISTORY: Right foot wound. Evaluate for osteomyelitis. COMPARISON STUDY: Right first toe radiographs September 07, 2022. TECHNIQUE: Utilizing a 1.5 Becky magnet and dedicated coil, multiplanar, multi echo imaging of the ri t forefoot was performed pre and postcontrast administration. Intravenous injection of 8.5 cc of Ga davist was uneventful. FINDINGS: Hallux valgus deformity is noted. Tarsometatarsal joints are intact. No fracture within the right forefoot is present. A marker was placed on the skin at site of wound. This overlies the media l aspect of the right forefoot. There is corresponding skin thickening and extensive subcutaneous amy ma and enhancement consistent with cellulitis. Associated 2.2 x 0.6 cm T2 hyperintense focus on the s kin may reflect a blister. In addition, there is subjacent hypoenhancing focus which measures 3 x 1.3 cm. No well-defined fluid collection is identified on the T2-weighted sequences. Note is made of a w ell demarcated 1.2 cm T2 hyperintense enhancing focus of the medial aspect of the right first metatar diana head. This is probably degenerative. There is moderate osteophytosis of the right first metatarso phalangeal joint. Note is made of significant increased T2 signal with diminished T1 signal and enhan cement within the distal phalanx of the right first toe. This favors acute osteomyelitis. Otherwise, T1 signal is preserved within the right forefoot. Additional multifocal degenerative changes within t he midfoot are present. IMPRESSION: 1. Findings suggestive of acute osteomyelitis within the distal phalanx of the right first toe. 2. Additional multifocal marrow signal abnormalities, as described above. These are probably degenera tive. 3. Wound of the medial right forefoot with extensive associated cellulitis. Associated subcutaneous 3 x 1.3 cm ill-defined hypoenhancing focus. This may reflect a nonviable tissue or phlegmon. A develop ing abscess is within the differential although considered less likely. 4. Hallux valgus. 5. Moderate degenerative changes within the right midfoot and forefoot. ACT 112: Negative or not required by law. Electronically signed by: Zack Zuleta M.D. 09/08/2022 6:07 PM
--- NOTE | 2022-09-08 21:36 | Orthopedic Progress Note ---
Date of Service September 08, 2022 Assessment & Plan (1) Type 2 diabetes mellitus with right diabetic foot infection: Plan: Patient seen, evaluated, and treated. Reviewed MRI images and MRI results. Discussed resection of non-viable bone and soft tissue right foot. Will contact OR for Monday evening availability. (2) Osteomyelitis of right foot: Admission and Anticipated Discharge Date Admission Date: September 07, 2022 Subjective Patient is seen and examined at bedside. Denies any pain of the right foot. No other complaints Review of Systems Review of Systems: All systems reviewed & are unremarkable except as noted in Subjective Physical Exam Constitutional: well developed and well nourished Neck: normal visual inspection Respiratory: normal respiratory effort Cardiovascular: Rate/Rhythm: regular rate and regular rhythm Skin: Focused Exam: Wound location:Right submet 1 Wound base color and depth:Full-thickness probing to bone wound size (cm):2.0 x 2.0 x 1.5 cm Odor:Malodorous Drainage:Moderate serous drainage Undermining:None Borders:Macerated Wound location:Left submet 1 Wound base color and depth:Full-thickness Wound size (cm):1.1x 1.1 x 0.2 cm Odor:No malodor Drainage:None Undermining:None Borders:Hyperkeratotic Neurologic: Absent epicritic sensation. Psychiatric: Orientation: alert and oriented x 3 Results & Data Vital Signs (Past 12 Hours) Vital Signs Temp Pulse Pulse Resp BP BP Pulse Ox 09/08/22 19:00 37.2 C 85 18 135/75 96 09/08/22 19:00 36.8 C 106 H 18 130/81 97 09/08/22 15:00 91 H 09/08/22 11:31 36.7 C 95 H 16 108/74 95 O2 Del Method O2 Flow Rate 09/08/22 19:00 Nasal Cannula 2 09/08/22 19:00 Room Air 09/08/22 15:00 09/08/22 11:31 Room Air Diagnostic Findings MR foot RT wo/w con CLINICAL HISTORY: Right foot wound. Evaluate for osteomyelitis. COMPARISON STUDY: Right first toe radiographs September 07, 2022. TECHNIQUE: Utilizing a 1.5 Becky magnet and dedicated coil, multiplanar, multi echo imaging of the right forefoot was performed pre and postcontrast administration. Intravenous injection of 8.5 cc of Gadavist was uneventful. FINDINGS: Hallux valgus deformity is noted. Tarsometatarsal joints are intact. No fracture within the right forefoot is present. A marker was placed on the skin at site of wound. This overlies the medial aspect of the right forefoot. There is corresponding skin thickening and extensive subcutaneous edema and enhancement consistent with cellulitis. Associated 2.2 x 0.6 cm T2 hyperintense focus on the skin may reflect a blister. In addition, there is subjacent hypoenhancing focus which measures 3 x 1.3 cm. No well-defined fluid collection is identified on the T2-weighted sequences. Note is made of a well demarcated 1.2 cm T2 hyperintense enhancing focus of the medial aspect of the right first metatarsal head. This is probably degenerative. There is moderate osteophytosis of the right first metatarsophalangeal joint. Note is made of significant increased T2 signal with diminished T1 signal and enhancement within the distal phalanx of the right first toe. This favors acute osteomyelitis. Otherwise, T1 signal is preserved within the right forefoot. Additional multifocal degenerative changes within the midfoot are present. IMPRESSION: 1. Findings suggestive of acute osteomyelitis within the distal phalanx of the right first toe. 2. Additional multifocal marrow signal abnormalities, as described above. These are probably degenerative. 3. Wound of the medial right forefoot with extensive associated cellulitis. Associated subcutaneous 3 x 1.3 cm ill-defined hypoenhancing focus. This may reflect a nonviable tissue or phlegmon. A developing abscess is within the differential although considered less likely. 4. Hallux valgus. 5. Moderate degenerative changes within the right midfoot and forefoot. ACT 112: Negative or not required by law. Electronically signed by: Zack Zuleta M.D.
[2022-09-09] MEDS: SODIUM CHLORIDE 0.9% 1000ML 1,000 ML IV SCH ×4 (00:16→19:55)
[2022-09-09] MEDS: VANCOMYCIN HCL 1,500 MG in SODIUM CHLORIDE 0.9% 500 ML IV SCH ×2 (01:25→13:46)
[2022-09-09 07:03] LABS: Hematocrit (blood only) 34.6 % (37.0-47.0); Hemoglobin 12.1 g/dl (12.0-16.0); Mean Corpuscular Hemoglobin 31.7 pg (25.0-34.0); Mean Corpuscular Volume 90.6 fL (80.0-100.0); Mean Platelet Volume 10.8 fL (9.4-12.4); Platelet Count 172 K/uL (130-400); RDW Coefficient of Variation 11.9 % (11.5-14.5); RDW Standard Deviation 39.2 fL (36.4-46.3); Red Blood Count 3.82 M/uL (4.20-5.40)
[2022-09-09 07:29] LABS: BUN Creatinine Ratio 21.7 (10-20); Calcium 8.3 mg/dl (8.6-10.3); Creatinine Clr Calc Pharmacy 95.9 ml/min; Est GFR (African American) 115.2 ml/min; Est GFR (Non-African American) 99.4 ml/min; Magnesium 1.8 mg/dl (1.7-2.4)
[2022-09-09] MEDS: INSULIN ASPART PER UNIT CHARGE SC SCH ×4 (08:29→22:08)
[2022-09-09] MEDS: LANTUS PER UNIT CHARGE SQ SCH ×2 (08:35→22:07)
[2022-09-09] MEDS: LOSARTAN POTASSIUM 25 MG TAB PO SCH (08:46)
[2022-09-09] MEDS: GABAPENTIN 600 MG TAB PO SCH ×4 (08:46→22:12)
[2022-09-09] MEDS: DULoxetine HCL 30 MG CAP PO SCH (08:46)
[2022-09-09] MEDS: SIMVASTATIN 10 MG TAB PO SCH (08:46)
[2022-09-09] MEDS: cefTRIAXone SODIUM 2,000 MG in DEXTROSE 5% 50 ML IV SCH (11:37)
--- NOTE | 2022-09-09 14:17 | Pharmacy Report ---
Pharmacy PK ABX Note - Date of Service September 09, 2022 - Assessment and Plan Assessment 09/09: SCr stable, MRI with evidence of osteo, plan for OR with Dr. Mcmanus, source control. Level this AM predicts achievement of target AUC/MARGARETTE. Will continue same dosing for now 09/08: SCr 0.63 toady, cultures pending, leukocytosis resolved. With improvement in renal function, current dose is predicting below target AUC/MARGARETTE. Will adjust 09/07: 52 year old F receiving IV Vancomycin for treatment of right DM foot infection. PMH DM II, HTN. Blood and urine cultures pending WBC 15.6, afebrile XRay of the foot shows edema in the R first metatarsal with edema but shows possible bony abnormality of the second metatarsal head concerning for crystalline arthropathy vs acute osteomyelitis. Plan 09/09: Continue 1500 mg q12H. No additional levels currently ordered 09/08: Adjust to 1500 mg q12H. Will get random level 4/7 AM 09/07: Vancomycin * Loading dose: 1750 mg IV x 1 * Maintenance dose: 750 mg IV every 12 hours * Regimen is predicted to achieve target AUC/MARGARETTE of 400-600 mg/L.hr * Will order random level Monday morning if therapy continues and no changes in SCr/maintenance dose. Pharmacy will continue to follow and will adjust dose/frequency as necessary. Thank you. Pharmacy has transitioned to AUC monitoring for vancomycin. AUC/MARGARETTE is the preferred PK/PD target and is associated with decreased risk of nephrotoxicity compared to traditional trough targets.
--- NOTE | 2022-09-09 14:35 | Anesthesiology Consultation ---
Date of Service September 09, 2022 Assessment & Plan Chart Review Chart Review: Acceptable Risk for Surgery and Patient NOT seen in Pre Admission Testing Consults Requested none ASA ASA3 Proposed Anesthesia Anesthesia Type: MAC History Surgery Operation Date: 09/09/22 10:55 Proposed Procedures p Right Foot Removal Non Viable Bone, Osteomyelitis - Frankie Mcmanus, DPM, MS Height/Weight Height: 5 ft 1 in Weight: 89.3 kg Allergies Allergy/AdvReac Type Severity Reaction Status Date / Time lisinopril Allergy Intermediate Cough Uncoded 09/07/22 14:30 Medications Home Medications Medication Instructions Recorded Confirmed Last Taken canagliflozin 100 mg tablet 100 mg PO DAILY 09/07/22 09/07/22 09/07/22 08:00 (Invokana) diclofenac sodium 50 mg 50 mg PO TID 09/07/22 09/07/22 09/07/22 08:00 tablet,delayed release dulaglutide 1.5 mg/0.5 mL 1.5 mg subcut WE 09/07/22 09/07/22 09/05/22 [facility] duloxetine 30 mg capsule,delayed 30 mg PO DAILY 09/07/22 09/07/22 09/07/22 08:00 release gabapentin 600 mg tablet 600 mg PO QID 09/07/22 09/07/22 09/07/22 08:00 insulin glargine 100 unit/mL (3 35 unit subcut BID 09/07/22 09/07/22 09/07/22 08:00 mL) subcutaneous pen (Lantus Solostar U-100 Insulin) losartan 25 mg tablet 25 mg PO DAILY 09/07/22 09/07/22 09/07/22 08:00 metformin 1,000 mg tablet 1,000 mg PO BID 09/07/22 09/07/22 09/07/22 08:00 simvastatin 10 mg tablet 10 mg PO DAILY 09/07/22 09/07/22 09/07/22 08:00 Active Medications Generic Name Dose Route Start Last Admin Trade Name Freq PRN Reason Stop Dose Admin Acetaminophen 650 mg 09/07/22 19:21 09/08/22 08:17 Acetaminophen 325 Mg Tab PO 10/07/22 19:20 650 mg Q4H PRN Administration Pain or Fever Duloxetine HCl 30 mg 09/08/22 09:00 09/09/22 08:46 Duloxetine Hcl 30 Mg Cap PO 10/08/22 08:59 30 mg DAILY JASON Administration Gabapentin 600 mg 09/07/22 19:21 09/09/22 13:46 Gabapentin 600 Mg Tab PO 10/07/22 19:20 600 mg QID JASON Administration Sodium Chloride 1,000 mls @ 125 mls/hr 09/07/22 19:21 09/09/22 13:47 Nss 1000ml IV 10/07/22 19:20 0 mls/hr .Q8H JASON Infusion Ceftriaxone Sodium 2,000 mg/ 70 mls @ 100 mls/hr 09/08/22 11:00 09/09/22 13:49 Dextrose IV 09/13/22 11:41 Infused Q24H JASON Infusion Protocol Vancomycin HCl 1,500 mg/ 530 mls @ 200 mls/hr 09/08/22 14:00 09/09/22 13:46 Sodium Chloride IV 09/14/22 19:59 200 mls/hr Q12H JASON Administration Protocol Insulin Aspart 0 units 09/07/22 16:30 09/09/22 11:37 Insulin Aspart Per Unit Charge SC 10/07/22 16:29 Not Given ACHS JASON Insulin Glargine 15 units 09/07/22 21:00 09/09/22 08:35 Lantus Per Unit Charge SQ 10/07/22 20:59 15 units BID JASON Administration Losartan Potassium 25 mg 09/08/22 09:00 09/09/22 08:46 Losartan Potassium 25 Mg Tab PO 10/08/22 08:59 25 mg DAILY JASON Administration Simvastatin 10 mg 09/08/22 09:00 09/09/22 08:46 Simvastatin 10 Mg Tab PO 10/08/22 08:59 10 mg DAILY JASON Administration Past Medical History Medical History Diabetes Eustachian tube dysfunction Hypertension Exercise / Class Metabolic Activity III < 4 Walking/Shop/Light housework Past Family History Family History Mother Diabetes Past Surgical History Surgical History History of bunionectomy of left great toe Hx of tubal ligation Past Anesthesia History No Hx of Anesthesia Complications and No Family Hx of Anesthesia Complications History of PONV No Hx of PONV and No Hx of Motion Sickness Social History Smoking Status: Never smoker Hx Alcohol Use: No Hx Substance Use: No Physical Exam Vital Signs Last Vital Signs Temp 36.9 C 09/09/22 11:08 Pulse 85 09/09/22 11:08 Resp 18 09/09/22 11:08 BP 122/78 09/09/22 11:08 Pulse Ox 98 09/09/22 11:08 O2 Del Method Room Air 09/09/22 11:08 O2 Flow Rate 2 09/08/22 19:00 Testing Laboratory Results 09/09/22 06:03 09/09/22 06:03 Hemoglobin A1c 9.0 % (4.5-5.6) H 09/08/22 05:24 Urine Color Bland 09/07/22 17:51 Urine Appearance Cloudy (Clear) A 09/07/22 17:51 Urine pH 5.0 (4.5-7.5) 09/07/22 17:51 Ur Specific [place] 1.045 (1.000-1.030) H 09/07/22 17:51 Urine Protein Negative (Negative) 09/07/22 17:51 Urine Glucose (UA) 3+ (Negative) H 09/07/22 17:51 Urine Ketones Trace (Negative) H 09/07/22 17:51 Urine Nitrite Negative (Negative) 09/07/22 17:51 Ur Leukocyte Esterase Trace (Negative) H 09/07/22 17:51 Urine WBC (Auto) 5-10 /hpf (0-5) H 09/07/22 17:51 Urine RBC (Auto) 0-4 /hpf (0-4) 09/07/22 17:51 U Hyaline Cast (Auto) 1-5 /lpf (0-5) 09/07/22 17:51 U Epithel Cells (Auto) >30 /lpf (0-5) H 09/07/22 17:51 Urine Bacteria (Auto) 1+ (Negative) H 09/07/22 17:51 09/07/22 12:21 Aerobic Blood Culture - Preliminary Blood No growth in Aerobic bottle after 48 hours. Anaerobic Blood Culture - Preliminary No growth in Anaerobic bottle after 48 hours. 09/07/22 12:20 Aerobic Blood Culture - Preliminary Blood No growth in Aerobic bottle after 48 hours. Anaerobic Blood Culture - Preliminary No growth in Anaerobic bottle after 48 hours. 09/07/22 17:51 Urine Culture - Final Urine,Clean Catch More than three types of organisms present, all moderate counts mixed probable skin paddy. No further identifications or sensitivities to follow. 09/09/22 09/09/22 11:29 07:16 POC Glucose 142 H 129 H Electrocardiogram Date: 09/07/22 Findings: + NSR @ (@ 98) Chest X-Ray Date: 09/07/22 Findings: + NAD
[2022-09-09] MEDS ORDERED: LIDOCAINE 2% 20 MG/ML 5 ML SYR IV ONE (15:43)
[2022-09-09] MEDS ORDERED: ONDANSETRON INJ 2 MG/ML 2 ML VIAL ONE (15:43)
[2022-09-09] MEDS ORDERED: PROPOFOL IV EMULSION 10 MG/ML 20 ML VIAL IV ONE ×2 (15:43→15:54)
[2022-09-09] MEDS ORDERED: fentaNYL citrate PF 100 MCG/2 ML VIAL ONE (15:48)
[2022-09-09] MEDS ORDERED: MIDAZOLAM HCL 1 MG/ML 2ML VIAL ONE (15:48)
--- NOTE | 2022-09-09 16:20 | History & Physical Bridge Note ---
Date of Service September 09, 2022 History & Physical Bridge Note I have examined the patient, reviewed the History & Physical and in the interval since the performance of the History & Physical I have noted the following changes of clinical significance: no changes noted
--- NOTE | 2022-09-09 16:23 | Hospitalist Progress Note ---
Date of Service September 09, 2022 Assessment & Plan (1) Sepsis: (2) Type 2 diabetes mellitus with right diabetic foot infection: Plan: Right foot diabetic ulcer Acute osteomyelitis-POA Foot abscess-POA --Toe X ray:Moderate soft tissue swelling without acute fracture, dislocation or osseous erosion identified within the first digit. Hallux valgus with first metatarsal head bunion. Suggestion of subtle periarticular erosions within the second metatarsal head. Correlate clinically to exclude an inflammatory or crystalline arthropathy. Acute osteomyelitis considered less likely. --MRI Foot:Findings suggestive of acute osteomyelitis within the distal phalanx of the right first toe. Additional multifocal marrow signal abnormalities, as described above. These are probably degenerative. Wound of the medial right forefoot with extensive associated cellulitis. Associated subcutaneous 3 x 1.3 cm ill-defined hypoenhancing focus. This may reflect a nonviable tissue or phlegmon. A developing abscess is within the differential although considered less likely. Hallux valgus. Moderate degenerative changes within the right midfoot and forefoot. -- Blood culture: No growth to date Empirically on vancomycin, Rocephin>> transition to vancomycin, cefepime, and Flagyl Appreciate Podiatry, ID Input Continue wound care Plan for resection of nonviable bone today (3) Diabetes: Plan: DM II Uncontrolled HbA1c 9.0 - Continue lantus at 15 U BID ( Reduced from 35) with ISS with accuchecks - Hold home meds-- invokana, metformin and trulicity (takes on Mondays) --Continue insulin per protocol Monitor BGs (4) Hypertension: Plan: - continue losartan (5) Obesity (BMI 30-39.9): Plan: - BMI 36.5, diet and exercise to be encouraged DVT ppx: - teds, scds for now CODE STATUS: Full code Admission and Anticipated Discharge Date Admission Date: September 07, 2022 Subjective Patient is seen and examined at bedside No new complaints Plan for surgery of right foot today Denies any chest pain, dyspnea, dizziness, nausea, abdominal pain Review of Systems Review of Systems: All systems reviewed & are unremarkable except as noted in Subjective Physical Exam Physical Exam: Physical Exam: Vitals signs as noted above General Appearance:Obese, no apparent distress Head: normocephalic, Atraumatic Eyes: normal inspection, EOMI Neck: supple, Trachea midline Respiratory/Chest: Normal breath sounds, CTA, No accessory muscle use Cardiovascular: S1, S2, No murmur Abdomen/GI:Soft, Non tender, Bowel sounds present Extremities/Musculoskeletal:normal inspection, pedal edema, + erythematous, macerated, nontender right foot ulcer at the base of first metatarsal Neurologic/Psych:AAOX3, grossly no focal neurological deficits Skin: normal color, warm Results & Data Results & Data Vital Signs (Past 12 Hours) Vital Signs Temp Pulse Pulse Pulse Resp BP Pulse Ox 09/09/22 15:25 36.8 C 89 20 112/69 100 09/09/22 15:11 36.7 C 79 20 114/78 98 09/09/22 14:46 84 09/09/22 06:00 92 H 09/09/22 11:08 36.9 C 85 18 122/78 98 09/09/22 07:44 36.9 C 88 20 114/71 97 O2 Del Method 09/09/22 15:25 Room Air 09/09/22 15:11 Room Air 09/09/22 14:46 09/09/22 06:00 09/09/22 11:08 Room Air 09/09/22 07:44 Room Air Laboratory Results Short CBC 09/09/22 Range/Units 06:03 WBC 8.60 (4.8-10.8) K/ul Hgb 12.1 (12.0-16.0) g/dl Hct 34.6 L (37.0-47.0) % Plt Count 172 (130-400) K/uL BMP 09/09/22 06:03 Sodium 136 Potassium 4.0 Chloride 107 Carbon Dioxide 22 BUN 15 Creatinine 0.69 Glucose 150 H Calcium 8.3 L
[2022-09-09] MEDS ORDERED: ATROPINE SULFATE 0.1 MG/ML 10ML SYR IV PRN (17:32)
[2022-09-09] MEDS ORDERED: ePHEDrine sulfate 50 MG/ML AMP IV PRN (17:32)
[2022-09-09] MEDS ORDERED: ONDANSETRON INJ 2 MG/ML 2 ML VIAL IV PRN (17:32)
[2022-09-09] MEDS ORDERED: fentaNYL citrate PF 100 MCG/2 ML VIAL IV PRN (17:32)
--- NOTE | 2022-09-09 17:34 | Post Operative Brief Note ---
Immediate Post Op Note v1 Date of Surgery September 09, 2022 Pre & Post Diagnosis Operation Date: 09/09/22 10:55 <No data on this case meets the specified criteria> I identified the patient and participated in the time-out.: Yes Procedure Operation Date: 09/09/22 10:55 <No data on this case meets the specified criteria> Surgeon Frankie Mcmanus, JOSE, MS Cover Remover none Estimated Blood Loss 0 Findings Consistent with Post-Op Diagnosis consistent with preoperative diagnosis Specimens Culture deep swab right foot 1st first metatarsal, and proximal phalanx right foot bone
--- NOTE | 2022-09-09 18:03 | Anesthesiology Progress Note ---
Date of Service September 09, 2022 Anesthesia Post Procedure Vital Signs Vital Signs: Temp Pulse Pulse Pulse Resp BP BP 09/09/22 17:55 36.7 C 79 19 132/77 09/09/22 17:45 80 16 128/68 09/09/22 17:39 36.7 C 85 18 133/68 09/09/22 15:25 36.8 C 89 20 112/69 09/09/22 15:11 36.7 C 79 20 114/78 09/09/22 14:46 84 09/09/22 06:00 92 H 09/09/22 11:08 36.9 C 85 18 122/78 09/09/22 07:44 36.9 C 88 20 114/71 09/09/22 04:00 37.4 C 92 H 18 106/66 09/08/22 23:28 97 H 09/08/22 23:00 37.5 C 94 H 18 128/87 09/08/22 19:00 37.2 C 85 18 135/75 09/08/22 19:00 36.8 C 106 H 18 130/81 Pulse Ox O2 Del Method O2 Flow Rate 09/09/22 17:55 96 Room Air 09/09/22 17:45 94 Room Air 09/09/22 17:39 99 Room Air 09/09/22 15:25 100 Room Air 09/09/22 15:11 98 Room Air 09/09/22 14:46 09/09/22 06:00 09/09/22 11:08 98 Room Air 09/09/22 07:44 97 Room Air 09/09/22 04:00 98 Room Air 09/08/22 23:28 09/08/22 23:00 100 Room Air 09/08/22 19:00 96 Nasal Cannula 2 09/08/22 19:00 97 Room Air Pain Intensity Head: Pain Intensity: 4 Transfer of Care Handoff Completed per policy Notes Mental Status: alert / awake / arousable Patient Amnestic to Procedure: Yes Nausea / Vomiting: adequately controlled Pain: adequately controlled Airway Patency, RR, SpO2: stable & adequate BP & HR: stable & adequate Hydration State: stable & adequate Anesthetic Complications: no major complications apparent
[2022-09-09] MEDS: CEFEPIME 2,000 MG in SYRINGE 0 ML IV SCH (18:16)
[2022-09-09] MEDS: metroNIDAZOLE 500 MG TAB PO SCH (18:20)
--- NOTE | 2022-09-09 21:02 | Operative Report ---
Post Operative Report Pre & Post Diagnosis Operation Date: 09/09/22 10:55 <No data on this case meets the specified criteria> I identified the patient and participated in the time-out.: Yes Procedure Operation Date: 09/09/22 10:55 <No data on this case meets the specified criteria> Surgeon Frankie Mcmanus, DPM, MS [place] none Estimated Blood Loss 0 Findings Consistent with Post-Op Diagnosis Findings consistent with post operative diagnosis. Specimens 1.) Deep culture swab right foot 2.) 1st metatarsal and proximal phalanx bone right foot Description of Procedure History of present illness: Patient is a type II diabetic, 52 year old female who is seen for treatment of osteomyelitis of the Right first metatarsal and proximal phalanx. Due to infection procedure most be staged and unable to be closed primarily. Discussed procedure in detail and postoperative recovery. All potential risks, benefits, complications, alternatives, rehab, potential for incomplete relief of symptoms, need for further surgery, DVT, PE, , persistent pain, swelling, scarring, weakness, neurovascular, wound complications, and potential for amputations were discussed with patient. Unwanted outcomes such as, but not limited to were reviewed including under correction, overcorrection, return of deformity, infection. All questions were answered. Patient has decided to proceed with procedure as indicated. Preoperative diagnosis: Diabetic ulcer osteomyelitis right first proximal phalanx and metatarsal Postoperative diagnosis: same Name of operation: 1.) Incision and drainage 2.) Debridement of right foot diabetic ulcer 3.) Right foot partial excision cauterization of first metatarsal bone 4.) Right foot partial excision cauterization of first proximal phalanx bone 5.) Delayed primary closure Surgeon Dr. Mcmanus [place] Cook: None Anesthesia: local with monitored anesthesia care Hemostasis: pneumatic ankle tourniquet Estimated blood loss: minimal Procedure in detail: Under mild sedation the patient was brought in the operating room placed on the operating table in supine position. A pneumatic ankle tourniquet was then placed about the patient's right ankle. Following IV sedation the foot was then prepped scrubbed and draped in usual aseptic manner. An Esmarch bandage was utilized to exsanguinate the patient's right foot and the pneumatic ankle tourniquet was then inflated. Attention was then directed to a plantar diabetic ulcer on the plantar aspect of the right metatarsal head where a diabetic foot ulcer is present and probes to bone. The plantar wound measures 1.1 x 1.2 x 1.6 cm. An additional wound is noted over the dorsal medial aspect of the right foot over a prominent bunion deformity. Significant necrotic tissue and malodor is noted. An incision was created utilizing a sharp, sterile, #15 blade surrounding the dorsal medial wound. The incision is centered around the necrotic tissue and carried down to first metatarsal bone. The wound is excised in toto. At this time the incision is broaden both proximally and distally. The incision is deepened through subcutaneous tissue using sharp blunt dissection. Care was taken to identify and retract all vital neurovascular structures. All bleeders were ligated and cauterized necessary. At this time attention is directed to the necrotic section of the first metatarsal. An oscillating saw was used to remove the first metatarsal head. The osteomyelitic first Metatarsal head placed on the back table and placed in a sterile cup. At this time attention is directed to the necrotic section of the base of the first proximal phalanx. An oscillating saw was used to remove the base of the first proximal phalanx. The osteomyelitic base of the first proximal phalanx was placed on the back table and placed in a sterile cup. These specimens were labeled and sent to microbiology for culture and sensitivities. At this time attention was then directed to the plantar diabetic foot ulcer of the right foot. Utilizing a sharp, sterile, #15 blade the wound was excised removing all non viable tissue. Deep culture swab was then obtained and sent to microbiology for culture and sensitives. At this time 1L of lactate ringer was utilize under low flow to flush the wound sites. Sterile compressive dressing consisting of 4 x 4's Martínez Kerlix ABD was then applied. The pneumatic ankle tourniquet was deflated, and a prompt hyperemic response was noted to all digits of the right foot. The Patient tolerated the procedure and anesthesia well. She was transferred to recovery room with vital signs stable and vascular status intact all toes of the right foot. Following a perior of postoperative monitoring the patient will be re-admitted to the hospital floor on the following written and postoperative oral instructions keep dressing clean dry,and elevate right foot when at rest. Contact Dr. Mcmanus for all postoperative care if any problems arise. I attest to the content of the Intraoperative Record and any orders documented therein. Any exceptions are noted below.
[2022-09-10] MEDS: CEFEPIME 2,000 MG in SYRINGE 0 ML IV SCH ×3 (01:23→16:31)
[2022-09-10] MEDS: metroNIDAZOLE 500 MG TAB PO SCH ×3 (01:24→18:07)
[2022-09-10] MEDS: VANCOMYCIN HCL 1,500 MG in SODIUM CHLORIDE 0.9% 500 ML IV SCH ×2 (02:22→13:16)
[2022-09-10] MEDS: SODIUM CHLORIDE 0.9% 1000ML 1,000 ML IV SCH (04:20)
[2022-09-10 07:10] LABS: Hematocrit (blood only) 31.8 % (37.0-47.0); Mean Corpuscular Hemoglobin 32.2 pg (25.0-34.0); Mean Corpuscular Hgb Conc 34.6 g/dL (32.0-36.0); Mean Platelet Volume 10.4 fL (9.4-12.4); Platelet Count 200 K/uL (130-400); RDW Standard Deviation 40.8 fL (36.4-46.3); Red Blood Count 3.42 M/uL (4.20-5.40); White Blood Count 7.24 K/ul (4.8-10.8)
[2022-09-10 07:27] LABS: BUN Creatinine Ratio 20.3 (10-20); Calcium 7.9 mg/dl (8.6-10.3); Creatinine Clr Calc Pharmacy 96.5 ml/min; Est GFR (African American) 115.2 ml/min; Est GFR (Non-African American) 99.4 ml/min; Magnesium 1.7 mg/dl (1.7-2.4); Potassium 3.7 mmol/L (3.5-5.1)
[2022-09-10] MEDS: GABAPENTIN 600 MG TAB PO SCH ×4 (09:35→21:16)
[2022-09-10] MEDS: DULoxetine HCL 30 MG CAP PO SCH (09:35)
[2022-09-10] MEDS: SIMVASTATIN 10 MG TAB PO SCH (09:35)
[2022-09-10] MEDS: LOSARTAN POTASSIUM 25 MG TAB PO SCH (09:35)
[2022-09-10] MEDS: LANTUS PER UNIT CHARGE SQ SCH ×2 (09:41→21:17)
[2022-09-10] MEDS: INSULIN ASPART PER UNIT CHARGE SC SCH ×4 (09:41→21:16)
[2022-09-10] MEDS: ACETAMINOPHEN 325 MG TAB PO PRN (09:46)
--- NOTE | 2022-09-10 16:44 | Hospitalist Progress Note ---
Date of Service September 10, 2022 Assessment & Plan (1) Sepsis: (2) Type 2 diabetes mellitus with right diabetic foot infection: Plan: Right foot diabetic ulcer Acute osteomyelitis-POA Foot abscess-POA --Toe X ray:Moderate soft tissue swelling without acute fracture, dislocation or osseous erosion identified within the first digit. Hallux valgus with first metatarsal head bunion. Suggestion of subtle periarticular erosions within the second metatarsal head. Correlate clinically to exclude an inflammatory or crystalline arthropathy. Acute osteomyelitis considered less likely. --MRI Foot:Findings suggestive of acute osteomyelitis within the distal phalanx of the right first toe. Additional multifocal marrow signal abnormalities, as described above. These are probably degenerative. Wound of the medial right forefoot with extensive associated cellulitis. Associated subcutaneous 3 x 1.3 cm ill-defined hypoenhancing focus. This may reflect a nonviable tissue or phlegmon. A developing abscess is within the differential although considered less likely. Hallux valgus. Moderate degenerative changes within the right midfoot and forefoot. --S/P I&D, debridement of right foot diabetic ulcer, partial excision of first metatarsal bone, first proximal phalanx bone on 09/09/22 by -- Blood culture: No growth to date --Wound culture growing staph species Empirically on vancomycin, Rocephin>> transition to vancomycin, cefepime, and Flagyl Appreciate Podiatry, ID Input Continue wound care Needs follow-up with podiatry upon discharge (3) Diabetes: Plan: DM II Uncontrolled HbA1c 9.0 - Continue lantus at 15 U BID ( Reduced from 35) with ISS with accuchecks - Hold home meds-- invokana, metformin and trulicity (takes on Mondays) --Continue insulin per protocol Monitor BGs (4) Hypertension: Plan: - continue losartan (5) Obesity (BMI 30-39.9): Plan: - BMI 36.5, diet and exercise to be encouraged DVT ppx: - teds, scds CODE STATUS: Full code Admission and Anticipated Discharge Date Admission Date: September 07, 2022 Subjective Patient is seen and examined at bedside States feeling well Offers no complaints Denies any chest pain, dyspnea, dizziness, nausea, abdominal pain Review of Systems Review of Systems: All systems reviewed & are unremarkable except as noted in Subjective Physical Exam Physical Exam: Physical Exam: Vitals signs as noted above General Appearance:Obese, no apparent distress Head: normocephalic, Atraumatic Eyes: normal inspection, EOMI Neck: supple, Trachea midline Respiratory/Chest: Normal breath sounds, CTA, No accessory muscle use Cardiovascular: S1, S2, No murmur Abdomen/GI:Soft, Non tender, Bowel sounds present Extremities/Musculoskeletal:normal inspection, pedal edema, + foot in dressing Neurologic/Psych:AAOX3, grossly no focal neurological deficits Skin: normal color, warm Results & Data Results & Data Vital Signs (Past 12 Hours) Vital Signs Temp Pulse Resp BP BP Pulse Ox O2 Del Method 09/10/22 16:23 36.5 C 82 18 113/68 100 Room Air 09/10/22 11:47 36.6 C 86 18 104/67 97 Room Air 09/10/22 07:51 37.1 C 81 16 107/69 99 Room Air Laboratory Results Short CBC 09/10/22 Range/Units 06:45 WBC 7.24 (4.8-10.8) K/ul Hgb 11.0 L (12.0-16.0) g/dl Hct 31.8 L (37.0-47.0) % Plt Count 200 (130-400) K/uL BMP 09/10/22 06:45 Sodium 135 L Potassium 3.7 Chloride 108 H Carbon Dioxide 20 L BUN 14 Creatinine 0.69 Glucose 163 H Calcium 7.9 L
[2022-09-11] MEDS: CEFEPIME 2,000 MG in SYRINGE 0 ML IV SCH ×3 (00:11→17:52)
[2022-09-11] MEDS: metroNIDAZOLE 500 MG TAB PO SCH ×3 (00:12→17:53)
[2022-09-11] MEDS: VANCOMYCIN HCL 1,500 MG in SODIUM CHLORIDE 0.9% 500 ML IV SCH ×2 (01:15→13:37)
[2022-09-11 07:14] LABS: Hematocrit (blood only) 31.8 % (37.0-47.0); Hemoglobin 11.3 g/dl (12.0-16.0); Mean Corpuscular Hemoglobin 31.9 pg (25.0-34.0); Mean Corpuscular Hgb Conc 35.5 g/dL (32.0-36.0); Mean Corpuscular Volume 89.8 fL (80.0-100.0); Mean Platelet Volume 10.4 fL (9.4-12.4); Platelet Count 204 K/uL (130-400); RDW Coefficient of Variation 11.9 % (11.5-14.5); RDW Standard Deviation 39.2 fL (36.4-46.3); Red Blood Count 3.54 M/uL (4.20-5.40); White Blood Count 5.75 K/ul (4.8-10.8)
[2022-09-11 07:38] LABS: Calcium 8.5 mg/dl (8.6-10.3); Creatinine Clr Calc Pharmacy 119.9 ml/min; Est GFR (African American) 124.1 ml/min; Est GFR (Non-African American) 107.1 ml/min; Magnesium 1.7 mg/dl (1.7-2.4); Potassium 3.6 mmol/L (3.5-5.1)
[2022-09-11] MEDS: LOSARTAN POTASSIUM 25 MG TAB PO SCH (08:12)
[2022-09-11] MEDS: GABAPENTIN 600 MG TAB PO SCH ×4 (08:12→21:32)
[2022-09-11] MEDS: DULoxetine HCL 30 MG CAP PO SCH (08:13)
[2022-09-11] MEDS: SIMVASTATIN 10 MG TAB PO SCH (08:13)
[2022-09-11] MEDS: INSULIN ASPART PER UNIT CHARGE SC SCH ×4 (08:16→21:32)
[2022-09-11] MEDS: LANTUS PER UNIT CHARGE SQ SCH ×2 (08:18→21:33)
--- NOTE | 2022-09-11 12:38 | Orthopedic Progress Note ---
Date of Service September 11, 2022 Assessment & Plan (1) Osteomyelitis of right foot: Plan: Patient seen, evaluated, and treated. Cultures +MRSA Patient may benefit from 6 weeks IV abx therapy as bone margins were unclear. She will require additional surgical care for possible debridement and delayed primary closure but potentially could be done as outpatient. Will continue to monitor while in house. Thank you for allowing me to participate in the care of this Patient. Admission and Anticipated Discharge Date Admission Date: September 07, 2022 Subjective Patient is seen and examined at bedside. Patient status post day #2 excision of bone, I&D right foot. Patient has no complaints. Dressing intact. Review of Systems Review of Systems: All systems reviewed & are unremarkable except as noted in Subjective Physical Exam Constitutional: well developed and well nourished Neck: normal visual inspection Respiratory: normal respiratory effort Cardiovascular: Rate/Rhythm: regular rate and regular rhythm Skin: Right foot DFU. Decreasing erythema. Hypergranulation. Healthy bleeding. Neurologic: Absent Epicritic sensation. Psychiatric: Orientation: alert and oriented x 3 Results & Data Vital Signs (Past 12 Hours) Vital Signs Temp Pulse Pulse Resp BP BP Pulse Ox 09/11/22 11:42 36.3 C L 75 16 120/75 97 09/11/22 08:00 80 09/11/22 08:01 37.0 C 78 16 112/63 97 09/11/22 03:16 36.9 C 82 16 144/77 H 97 O2 Del Method 09/11/22 11:42 Room Air 09/11/22 08:00 09/11/22 08:01 Room Air 09/11/22 03:16 Room Air Diagnostic Findings Aero/Isabel Cult Preliminary 09/11/22-1226 Organism 1 Staph aureus MRSA Quantity Few Sens Sensitivities to Follow +MixWound Plus Low Counts of Probable Skin Christine MRSA RX M.I.C. --- --------- Clindamycin S <=0.5 Daptomycin S 1 Erythromycin S <=0.5 Oxacillin R >2 Rifampin S <=1 Tetracycline I 8 Trimeth/Sulfa S <=0.5/9.5 Vancomycin S 2 S = SENSITIVE I = INTERMEDIATE R = RESISTANT
--- NOTE | 2022-09-11 17:29 | Hospitalist Progress Note ---
Date of Service September 11, 2022 Assessment & Plan (1) Sepsis: (2) Type 2 diabetes mellitus with right diabetic foot infection: Plan: Right foot diabetic ulcer Acute osteomyelitis-POA Foot abscess-POA --Toe X ray:Moderate soft tissue swelling without acute fracture, dislocation or osseous erosion identified within the first digit. Hallux valgus with first metatarsal head bunion. Suggestion of subtle periarticular erosions within the second metatarsal head. Correlate clinically to exclude an inflammatory or crystalline arthropathy. Acute osteomyelitis considered less likely. --MRI Foot:Findings suggestive of acute osteomyelitis within the distal phalanx of the right first toe. Additional multifocal marrow signal abnormalities, as described above. These are probably degenerative. Wound of the medial right forefoot with extensive associated cellulitis. Associated subcutaneous 3 x 1.3 cm ill-defined hypoenhancing focus. This may reflect a nonviable tissue or phlegmon. A developing abscess is within the differential although considered less likely. Hallux valgus. Moderate degenerative changes within the right midfoot and forefoot. --S/P I&D, debridement of right foot diabetic ulcer, partial excision of first metatarsal bone, first proximal phalanx bone on 09/09/22 by -- Blood culture: No growth to date --Wound culture growing MRSA, probable anaerobic gram-negative bacilli Empirically on vancomycin, Rocephin>> transition to vancomycin, cefepime, and Flagyl Appreciate Podiatry, ID Input Continue wound care Needs follow-up with podiatry upon discharge Will likely need 6-week course of IV antibiotics Await final cultures (3) Diabetes: Plan: DM II Uncontrolled HbA1c 9.0 - Continue lantus at 15 U BID ( Reduced from 35) with ISS with accuchecks - Hold home meds-- invokana, metformin and trulicity (takes on Mondays) --Continue insulin per protocol Monitor BGs (4) Hypertension: Plan: - continue losartan (5) Obesity (BMI 30-39.9): Plan: - BMI 36.5, diet and exercise to be encouraged DVT ppx: - teds, scds --Heparin SQ CODE STATUS: Full code Admission and Anticipated Discharge Date Admission Date: September 07, 2022 Subjective Patient is seen and examined at bedside Offers no complaints Denies any chest pain, dyspnea, dizziness, nausea, abdominal pain Wound culture growing MRSA, probable gram-negative bacilli Review of Systems Review of Systems: All systems reviewed & are unremarkable except as noted in Subjective Physical Exam Physical Exam: Physical Exam: Vitals signs as noted above General Appearance:Obese, no apparent distress Head: normocephalic, Atraumatic Eyes: normal inspection, EOMI Neck: supple, Trachea midline Respiratory/Chest: Normal breath sounds, CTA, No accessory muscle use Cardiovascular: S1, S2, No murmur Abdomen/GI:Soft, Non tender, Bowel sounds present Extremities/Musculoskeletal:normal inspection, pedal edema, + foot in dressing Neurologic/Psych:AAOX3, grossly no focal neurological deficits Skin: normal color, warm Results & Data Results & Data Vital Signs (Past 12 Hours) Vital Signs Temp Pulse Pulse Resp BP Pulse Ox O2 Del Method 09/11/22 15:56 36.6 C 71 16 120/77 98 Room Air 09/11/22 11:42 36.3 C L 75 16 120/75 97 Room Air 09/11/22 08:00 80 09/11/22 08:01 37.0 C 78 16 112/63 97 Room Air Laboratory Results Short CBC 09/11/22 Range/Units 06:37 WBC 5.75 (4.8-10.8) K/ul Hgb 11.3 L (12.0-16.0) g/dl Hct 31.8 L (37.0-47.0) % Plt Count 204 (130-400) K/uL BMP 09/11/22 06:37 Sodium 139 Potassium 3.6 Chloride 109 H Carbon Dioxide 24 BUN 11 Creatinine 0.55 L Glucose 156 H Calcium 8.5 L
[2022-09-11] MEDS: HEPARIN SOD 5,000 UNIT/0.5 ML VIAL SQ SCH (21:32)
[2022-09-12] MEDS: metroNIDAZOLE 500 MG TAB PO SCH ×3 (00:45→18:09)
[2022-09-12] MEDS: CEFEPIME 2,000 MG in SYRINGE 0 ML IV SCH ×3 (00:46→16:44)
[2022-09-12] MEDS: VANCOMYCIN HCL 1,500 MG in SODIUM CHLORIDE 0.9% 500 ML IV SCH (02:21)
[2022-09-12 08:08] LABS: BUN Creatinine Ratio 13.1 (10-20); Calcium 8.6 mg/dl (8.6-10.3); Creatinine Clr Calc Pharmacy 108.2 ml/min; Est GFR (Non-African American) 103.5 ml/min; Potassium 3.7 mmol/L (3.5-5.1)
[2022-09-12] MEDS: LANTUS PER UNIT CHARGE SQ SCH ×2 (09:16→21:15)
[2022-09-12] MEDS: INSULIN ASPART PER UNIT CHARGE SC SCH ×4 (09:18→21:15)
[2022-09-12] MEDS: HEPARIN SOD 5,000 UNIT/0.5 ML VIAL SQ SCH ×2 (09:19→20:33)
[2022-09-12] MEDS: DULoxetine HCL 30 MG CAP PO SCH (09:20)
[2022-09-12] MEDS: LOSARTAN POTASSIUM 25 MG TAB PO SCH (09:20)
[2022-09-12] MEDS: GABAPENTIN 600 MG TAB PO SCH ×4 (09:20→20:33)
[2022-09-12] MEDS: SIMVASTATIN 10 MG TAB PO SCH (09:20)
--- NOTE | 2022-09-12 11:58 | Pharmacy Report ---
Pharmacy PK ABX Note - Date of Service September 12, 2022 - Assessment and Plan Assessment 09/12: OR cultures growing MRSA + probable anaerobic gram negative bacilli preliminary. Possible 6 weeks of therapy d/t unclear bone margins. ID consulted. Level this AM 14.8, suggest AUC/MARGARETTE of 412. Will slightly increase dose as this is at bottom of goal range. Will attempt to keep q12H dosing for now as this may be easier for outpatient administration if vancomycin continued outpatient. 09/09: SCr stable, MRI with evidence of osteo, plan for OR with Dr. Mcmanus, source control. Level this AM predicts achievement of target AUC/MARGARETTE. Will continue same dosing for now 09/08: SCr 0.63 toady, cultures pending, leukocytosis resolved. With improvement in renal function, current dose is predicting below target AUC/MARGARETTE. Will adjust 09/07: 52 year old F receiving IV Vancomycin for treatment of right DM foot infection. PMH DM II, HTN. Blood and urine cultures pending WBC 15.6, afebrile XRay of the foot shows edema in the R first metatarsal with edema but shows possible bony abnormality of the second metatarsal head concerning for crystalline arthropathy vs acute osteomyelitis. Plan 09/12: Change to 1750 mg q12H- additional level to be ordered 09/14 @ 1000 09/09: Continue 1500 mg q12H. No additional levels currently ordered 09/08: Adjust to 1500 mg q12H. Will get random level 09/09 AM 09/07: Vancomycin * Loading dose: 1750 mg IV x 1 * Maintenance dose: 750 mg IV every 12 hours * Regimen is predicted to achieve target AUC/MARGARETTE of 400-600 mg/L.hr * Will order random level Monday morning if therapy continues and no changes in SCr/maintenance dose. Pharmacy will continue to follow and will adjust dose/frequency as necessary. Thank you. Pharmacy has transitioned to AUC monitoring for vancomycin. AUC/MARGARETTE is the preferred PK/PD target and is associated with decreased risk of nephrotoxicity compared to traditional trough targets.
[2022-09-12] MEDS: VANCOMYCIN HCL 1,750 MG in SODIUM CHLORIDE 0.9% 500 ML IV SCH (13:25)
--- NOTE | 2022-09-12 18:45 | Hospitalist Progress Note ---
Date of Service September 12, 2022 Assessment & Plan (1) Sepsis: (2) Type 2 diabetes mellitus with right diabetic foot infection: Plan: Right foot diabetic ulcer Acute osteomyelitis-POA Foot abscess-POA --Toe X ray:Moderate soft tissue swelling without acute fracture, dislocation or osseous erosion identified within the first digit. Hallux valgus with first metatarsal head bunion. Suggestion of subtle periarticular erosions within the second metatarsal head. Correlate clinically to exclude an inflammatory or crystalline arthropathy. Acute osteomyelitis considered less likely. --MRI Foot:Findings suggestive of acute osteomyelitis within the distal phalanx of the right first toe. Additional multifocal marrow signal abnormalities, as described above. These are probably degenerative. Wound of the medial right forefoot with extensive associated cellulitis. Associated subcutaneous 3 x 1.3 cm ill-defined hypoenhancing focus. This may reflect a nonviable tissue or phlegmon. A developing abscess is within the differential although considered less likely. Hallux valgus. Moderate degenerative changes within the right midfoot and forefoot. --S/P I&D, debridement of right foot diabetic ulcer, partial excision of first metatarsal bone, first proximal phalanx bone on 09/09/22 by -- Blood culture: No growth to date --Wound culture growing MRSA, prevotella Empirically on vancomycin, Rocephin>> transition to vancomycin, cefepime, and Flagyl Appreciate Podiatry, ID Input Continue wound care Needs follow-up with podiatry upon discharge Will likely need 6-week course of IV antibiotics Will de-escalate antibiotics as able (3) Diabetes: Plan: DM II Uncontrolled HbA1c 9.0 - Continue lantus at 15 U BID ( Reduced from 35) with ISS with accuchecks - Hold home meds-- invokana, metformin and trulicity (takes on Mondays) --Continue insulin per protocol Monitor BGs (4) Hypertension: Plan: - continue losartan (5) Obesity (BMI 30-39.9): Plan: - BMI 36.5, diet and exercise to be encouraged DVT ppx: - teds, scds --Heparin SQ CODE STATUS: Full code Admission and Anticipated Discharge Date Admission Date: September 07, 2022 Subjective Patient is seen and examined at bedside Feeling well No new complaints Denies any chest pain, dyspnea, dizziness, nausea, abdominal pain Wound culture growing MRSA, Prevotella Review of Systems Review of Systems: All systems reviewed & are unremarkable except as noted in Subjective Physical Exam Physical Exam: Physical Exam: Vitals signs as noted above General Appearance:Obese, no apparent distress Head: normocephalic, Atraumatic Eyes: normal inspection, EOMI Neck: supple, Trachea midline Respiratory/Chest: Normal breath sounds, CTA, No accessory muscle use Cardiovascular: S1, S2, No murmur Abdomen/GI:Soft, Non tender, Bowel sounds present Extremities/Musculoskeletal:normal inspection, pedal edema, + foot in dressing Neurologic/Psych:AAOX3, grossly no focal neurological deficits Skin: normal color, warm Results & Data Results & Data Vital Signs (Past 12 Hours) Vital Signs Temp Pulse Pulse Resp BP Pulse Ox O2 Del Method 09/12/22 16:06 36.9 C 65 18 102/68 97 Room Air 09/12/22 12:17 36.8 C 71 18 110/72 93 Room Air 09/12/22 08:00 71 09/12/22 08:55 36.9 C 75 20 105/66 98 Room Air Laboratory Results [facility] 09/12/22 06:54 Sodium 139 Potassium 3.7 Chloride 106 Carbon Dioxide 27 BUN 8 Creatinine 0.61 Glucose 207 H Calcium 8.6
[2022-09-13] MEDS: CEFEPIME 2,000 MG in SYRINGE 0 ML IV SCH ×3 (01:49→17:50)
[2022-09-13] MEDS: metroNIDAZOLE 500 MG TAB PO SCH ×3 (01:50→17:50)
[2022-09-13] MEDS: VANCOMYCIN HCL 1,750 MG in SODIUM CHLORIDE 0.9% 500 ML IV SCH ×2 (01:57→13:43)
[2022-09-13] MEDS: SIMVASTATIN 10 MG TAB PO SCH (09:50)
[2022-09-13] MEDS: LOSARTAN POTASSIUM 25 MG TAB PO SCH (09:50)
[2022-09-13] MEDS: GABAPENTIN 600 MG TAB PO SCH ×4 (09:50→20:55)
[2022-09-13] MEDS: DULoxetine HCL 30 MG CAP PO SCH (09:50)
[2022-09-13] MEDS: HEPARIN SOD 5,000 UNIT/0.5 ML VIAL SQ SCH ×2 (09:51→20:55)
[2022-09-13] MEDS: INSULIN ASPART PER UNIT CHARGE SC SCH ×4 (10:01→20:56)
[2022-09-13] MEDS: LANTUS PER UNIT CHARGE SQ SCH ×3 (10:02→20:56)
[2022-09-13] MEDS: ADVANCED PROBIOTIC 1250 MG CAPSULE PO SCH (15:38)
--- NOTE | 2022-09-13 17:07 | Hospitalist Progress Note ---
Date of Service September 13, 2022 Assessment & Plan (1) Sepsis: (2) Type 2 diabetes mellitus with right diabetic foot infection: Plan: Right foot diabetic ulcer Acute osteomyelitis-POA Foot abscess-POA --Toe X ray:Moderate soft tissue swelling without acute fracture, dislocation or osseous erosion identified within the first digit. Hallux valgus with first metatarsal head bunion. Suggestion of subtle periarticular erosions within the second metatarsal head. Correlate clinically to exclude an inflammatory or crystalline arthropathy. Acute osteomyelitis considered less likely. --MRI Foot:Findings suggestive of acute osteomyelitis within the distal phalanx of the right first toe. Additional multifocal marrow signal abnormalities, as described above. These are probably degenerative. Wound of the medial right forefoot with extensive associated cellulitis. Associated subcutaneous 3 x 1.3 cm ill-defined hypoenhancing focus. This may reflect a nonviable tissue or phlegmon. A developing abscess is within the differential although considered less likely. Hallux valgus. Moderate degenerative changes within the right midfoot and forefoot. --S/P I&D, debridement of right foot diabetic ulcer, partial excision of first metatarsal bone, first proximal phalanx bone on 09/09/22 by -- Blood culture: No growth to date --Wound culture growing MRSA, prevotella Empirically on vancomycin, Rocephin>> transition to vancomycin, cefepime, and Flagyl Appreciate Podiatry, ID Input Continue wound care Needs follow-up with podiatry upon discharge Will likely need 6-week course of IV antibiotics Prevotella sensitivities pending We will discuss with ID on final recommendations as able Needs wound VAC, PICC line placed when appropriate Needs follow-up with podiatry upon discharge Diarrhea Likely secondary to antibiotics Check stool for C. difficile if recurrent (3) Diabetes: Plan: DM II Uncontrolled HbA1c 9.0 - Continue lantus at 20 U BID ( Reduced from 35) with ISS with accuchecks - Hold home meds-- invokana, metformin and trulicity (takes on Mondays) --Continue insulin per protocol Monitor BGs Adjust insulin doses as needed to control blood glucose levels (4) Hypertension: Plan: - continue losartan (5) Obesity (BMI 30-39.9): Plan: - BMI 36.5, diet and exercise to be encouraged DVT ppx: - teds, scds --Heparin SQ CODE STATUS: Full code Admission and Anticipated Discharge Date Admission Date: September 07, 2022 Subjective Patient is seen and examined at bedside States having diarrhea today No other complaints Denies any chest pain, dyspnea, dizziness, nausea, abdominal pain Needs wound VAC placed Review of Systems 2 Review of Systems: All systems reviewed & are unremarkable except as noted in Subjective Physical Exam Physical Exam: Physical Exam: Vitals signs as noted above General Appearance:Obese, no apparent distress Head: normocephalic, Atraumatic Eyes: normal inspection, EOMI Neck: supple, Trachea midline Respiratory/Chest: Normal breath sounds, CTA, No accessory muscle use Cardiovascular: S1, S2, No murmur Abdomen/GI:Soft, Non tender, Bowel sounds present Extremities/Musculoskeletal:normal inspection, pedal edema, + foot in surgical dressing Neurologic/Psych:AAOX3, grossly no focal neurological deficits Skin: normal color, warm Results & Data Results & Data Vital Signs (Past 12 Hours) Vital Signs Temp Pulse Resp BP Pulse Ox O2 Del Method 09/13/22 15:44 36.8 C 70 18 113/71 98 Room Air 09/13/22 11:50 78 18 111/73 95 Room Air
--- NOTE | 2022-09-13 21:53 | Orthopedic Progress Note ---
Date of Service September 13, 2022 Assessment & Plan (1) Osteomyelitis of right foot: Plan: Patient seen, evaluated, and treated. Cultures +MRSA, Reviewed ID note from 09/09. Patient may benefit from 6 weeks IV abx therapy as bone margins were unclear. Will continue to monitor while in house. Thank you for allowing me to participate in the care of this Patient. Admission and Anticipated Discharge Date Admission Date: September 07, 2022 Subjective Patient is seen and examined at bedside Patient status post day#4 right foot removal of non-viable bone and soft tissue. No other complaints. Review of Systems Review of Systems: All systems reviewed & are unremarkable except as noted in HPI & below Physical Exam Constitutional: well developed and well nourished Neck: normal visual inspection Respiratory: normal respiratory effort Cardiovascular: Rate/Rhythm: regular rate and regular rhythm Psychiatric: Orientation: alert and oriented x 3 Results & Data Vital Signs (Past 12 Hours) Vital Signs Temp Pulse Pulse Resp BP Pulse Ox O2 Del Method 09/13/22 19:20 36.5 C 75 16 119/74 96 Room Air 09/13/22 17:00 76 09/13/22 15:44 36.8 C 70 18 113/71 98 Room Air 09/13/22 11:50 78 18 111/73 95 Room Air
[2022-09-14] MEDS: CEFEPIME 2,000 MG in SYRINGE 0 ML IV SCH ×2 (00:33→08:28)
[2022-09-14] MEDS: VANCOMYCIN HCL 1,750 MG in SODIUM CHLORIDE 0.9% 500 ML IV SCH ×2 (02:04→15:11)
[2022-09-14 07:19] LABS: Hematocrit (blood only) 34.9 % (37.0-47.0); Mean Corpuscular Hemoglobin 31.4 pg (25.0-34.0); Mean Corpuscular Hgb Conc 34.4 g/dL (32.0-36.0); Mean Corpuscular Volume 91.4 fL (80.0-100.0); Mean Platelet Volume 10.5 fL (9.4-12.4); Platelet Count 284 K/uL (130-400); RDW Coefficient of Variation 12.4 % (11.5-14.5); RDW Standard Deviation 40.4 fL (36.4-46.3); Red Blood Count 3.82 M/uL (4.20-5.40); White Blood Count 7.56 K/ul (4.8-10.8)
[2022-09-14 07:24] LABS: Creatinine Clr Calc Pharmacy 98.1 ml/min; Est GFR (African American) 116.3 ml/min; Est GFR (Non-African American) 100.4 ml/min
[2022-09-14] MEDS: metroNIDAZOLE 500 MG TAB PO SCH ×2 (08:29)
[2022-09-14] MEDS: LOSARTAN POTASSIUM 25 MG TAB PO SCH (08:29)
[2022-09-14] MEDS: SIMVASTATIN 10 MG TAB PO SCH (08:29)
[2022-09-14] MEDS: DULoxetine HCL 30 MG CAP PO SCH (08:29)
[2022-09-14] MEDS: ADVANCED PROBIOTIC 1250 MG CAPSULE PO SCH (08:29)
[2022-09-14] MEDS: HEPARIN SOD 5,000 UNIT/0.5 ML VIAL SQ SCH ×2 (08:29→20:12)
[2022-09-14] MEDS: GABAPENTIN 600 MG TAB PO SCH ×4 (08:29→20:12)
[2022-09-14] MEDS: LANTUS PER UNIT CHARGE SQ SCH (08:35)
[2022-09-14] MEDS: INSULIN ASPART PER UNIT CHARGE SC SCH ×4 (08:35→20:10)
--- NOTE | 2022-09-14 11:19 | Pharmacy Report ---
Pharmacy PK ABX Note - Date of Service September 14, 2022 - Assessment and Plan Assessment 09/14: Cultures growing MRSA and Prevotella bivia. Provider awaiting further recs from ID. Based on culture results, could consider discontinuation of cefepime. Remains afebrile with no leukocytosis. 09/12: OR cultures growing MRSA + probable anaerobic gram negative bacilli preliminary. Possible 6 weeks of therapy d/t unclear bone margins. ID consulted. Level this AM 14.8, suggest AUC/MARGARETTE of 412. Will slightly increase dose as this is at bottom of goal range. Will attempt to keep q12H dosing for now as this may be easier for outpatient administration if vancomycin continued outpatient. 09/07: 52 year old F receiving IV Vancomycin for treatment of right DM foot infection. PMH DM II, HTN. * Blood and urine cultures pending * WBC 15.6, afebrile * XRay of the foot shows edema in the R first metatarsal with edema but shows possible bony abnormality of the second metatarsal head concerning for crystalline arthropathy vs acute osteomyelitis. Plan Vancomycin * Current regimen: 1750 mg IV every 12 hours * Random level obtained 09/14/22 resulted as 16 mcg/mL. This is predicted to achieve target AUC/MARGARETTE of 400-600 mg/L.hr * Predicted AUC at steady state: 516 mg/L.hr * Continue 1750 mg IV every 12 hours * Will repeat level in the next 48-72 hours if therapy is continued and/or change in patient clinical status Metronidazole * 500 mg PO q8h - provides reliable coverage against Prevotella bivia Pharmacy will continue to follow and will adjust dose/frequency as necessary. Thank you. Pharmacy has transitioned to AUC monitoring for vancomycin. AUC/MARGARETTE is the preferred PK/PD target and is associated with decreased risk of nephrotoxicity compared to traditional trough targets.
--- NOTE | 2022-09-14 11:37 | Hospitalist Progress Note ---
Date of Service September 14, 2022 Assessment & Plan (1) Sepsis: (2) Type 2 diabetes mellitus with right diabetic foot infection: Plan: Right foot diabetic ulcer Acute osteomyelitis-POA Foot abscess-POA -Toe X ray:Moderate soft tissue swelling without acute fracture, dislocation or osseous erosion identified within the first digit. Hallux valgus with first metatarsal head bunion. Suggestion of subtle periarticular erosions within the second metatarsal head. Correlate clinically to exclude an inflammatory or crystalline arthropathy. Acute osteomyelitis considered less likely. -MRI Foot:Findings suggestive of acute osteomyelitis within the distal phalanx of the right first toe. Additional multifocal marrow signal abnormalities, as described above. These are probably degenerative. Wound of the medial right forefoot with extensive associated cellulitis. Associated subcutaneous 3 x 1.3 cm ill-defined hypoenhancing focus. This may reflect a nonviable tissue or phlegmon. A developing abscess is within the differential although considered less likely. Hallux valgus. Moderate degenerative changes within the right midfoot and forefoot. S/P I&D, debridement of right foot diabetic ulcer, partial excision of first metatarsal bone, first proximal phalanx bone on 09/09/22 by Blood culture: No growth to date Wound culture growing MRSA, prevotella Currently on vancomycin, cefepime, and Flagyl Per Marketing Project Specialist, had unclear margins Will need 6-week course of IV antibiotics Discussed with ID Dr Lanier. He recommends IV vancomycin and po Augmentin 875mg bid x 6 weeks and ID f/u outpaitent in 4 weeks PICC consent obtained and ordered Had some diarrhea yesterday Likely secondary to antibiotics Negative c diff (3) Diabetes: Plan: DM II Uncontrolled HbA1c 9.0 - Hold home meds-- invokana, metformin and trulicity (takes on Mondays) Monitor BGs Reported she is not sure if she was injecting the trulicity properly DM education provided DM educator consult noted Pharm glycemic consult for optimal blood glucose control Continue insulin regimen. Optimize control (4) Hypertension: Plan: Continue losartan (5) Obesity (BMI 30-39.9): Plan: BMI 36.5, diet and exercise to be encouraged DVT ppx: - Teds, scds -Heparin SQ CODE STATUS: Full code I spent a total of 50 minutes coordinating, documenting and providing care for this patient excluding time spent in performance of separately billed services Admission and Anticipated Discharge Date Admission Date: September 07, 2022 Subjective Patient seen and examined. Patient denies any pain at surgical site. Denies any nausea, vomiting Denies fever, chills, abdominal, diarrhea. Denies cough, chest pain, shortness of breath Physical Exam Constitutional: + well hydrated and + obese; no acute distress Eyes: PERRL, conjunctivae normal, anicteric sclerae ENMT: external ear and nose normal, oropharynx normal Respiratory: normal respiratory effort, lungs clear to auscultation Cardiovascular: RRR, no murmur, no edema Gastrointestinal (Abdomen): normal bowel sounds, soft, nontender, no hepatosplenomegaly Musculoskeletal: Right foot bandaged Neurologic: PERRL, EOMI, accommodation nl, no face palsy, no dysarthria Psychiatric: A+Ox3, euthymic affect Results & Data Results & Data Vital Signs (Past 12 Hours) Vital Signs Temp Pulse Pulse Resp BP Pulse Ox O2 Del Method 09/14/22 08:00 36.9 C 70 18 99/59 L 97 Room Air 09/14/22 07:36 76 09/14/22 02:55 36.9 C 72 16 116/67 97 Room Air Laboratory Results Abnormal lab results 09/13/22 09/13/22 09/14/22 Range/Units 16:47 20:10 06:01 RBC 3.82 L (4.20-5.40) M/uL Hct 34.9 L (37.0-47.0) % POC Glucose 197 H 292 H (70-99) mg/dl 09/14/22 09/14/22 09/14/22 Range/Units 07:42 11:47 11:48 RBC (4.20-5.40) M/uL Hct (37.0-47.0) % POC Glucose 209 H 316 H* 313 H* (70-99) mg/dl
[2022-09-14] MEDS ORDERED: PHARMACY GLYCEMIC MGMT CONSULT PRN (12:33)
--- NOTE | 2022-09-14 13:41 | Pharmacy Report ---
Pharmacy Glycemic Short Note 2 - Date of Service September 14, 2022 - Glycemic Short BSG Results (Last 24 hours): 09/13/22 09/13/22 09/14/22 16:47 20:10 07:42 POC Glucose 197 H 292 H 209 H 09/14/22 09/14/22 11:47 11:48 POC Glucose 316 H* 313 H* OUTPATIENT ANTIDIABETIC REGIMEN: * Lantus 35 units SC BID * Metformin 1 g PO BIDM * Trulicity 1.5 mg SC Monday * Invokana 100 mg PO daily HbA1c: 9% (09/08/22) ASSESSMENT: * ARMANDO is a 52 year old female, hospital day #7, admitted for IV antibiotic treatment of right diabetic foot infection * Has been receiving broad spectrum antibiotics with vancomycin, cefepime, and metronidazole; now de-escalated to vancomycin and Augmentin * Patient has been persistently hyperglycemic over past 72 hours * Pharmacy consulted today for lunchtime BSG > 300 mg/dL * Given significant outpatient insulin/DM medication needs -> will tighten Novolog and increase Lantus * Euglycemia will be important for wound healing/clearing of infection PLAN FOR INPATIENT GLYCEMIC CONTROL: * Hold outpatient oral diabetes medications * Basal insulin * Received Lantus 20 units SC x 1 this morning, will give 30 units with dinner to equal 50 units (~25% increase) * Lantus 25 units SC BID * Bolus insulin * NovoLog per scale ACHS or Q6hrs while NPO * Goal Range: Low 110 mg/dL - High 140 mg/dL * Correction Factor: 20 mg/dL/unit * Nutritional / Prandial insulin per carb ratio of 1 unit per 6 grams CHO consumed
[2022-09-14] MEDS ORDERED: LANTUS PER UNIT CHARGE SQ ONE (16:30)
[2022-09-14] MEDS: AMOXICILLIN/CLAVULANATE 875 MG TAB PO SCH (17:27)
--- NOTE | 2022-09-14 21:57 | Orthopedic Progress Note ---
Date of Service September 14, 2022 Assessment & Plan (1) Osteomyelitis of right foot: Plan: Patient seen, evaluated, and treated. Discussed follow up in office upon discharge. Patient is to make an appointment. Will continue to monitor while in house. Thank you for allowing me to participate in the care of this Patient. Admission and Anticipated Discharge Date Admission Date: September 07, 2022 Subjective Patient seen and examined at bedside. Patient is status post day #5 right foot surgery. Patient denies any pain at surgical site. Patient has no complaints. Review of Systems Review of Systems: All systems reviewed & are unremarkable except as noted in Subjective Physical Exam Constitutional: well developed and well nourished Neck: normal visual inspection Respiratory: normal respiratory effort Cardiovascular: Rate/Rhythm: regular rate and regular rhythm Skin: Right DFU sub met 1. Open incision site right medial 1st MTPJ Psychiatric: Orientation: alert and oriented x 3 Results & Data Vital Signs (Past 12 Hours) Vital Signs Temp Pulse Pulse Resp BP Pulse Ox O2 Del Method 09/14/22 19:19 36.9 C 80 16 138/82 97 Room Air 09/14/22 15:53 74 09/14/22 12:00 36.8 C 73 18 103/56 L 96 Room Air
[2022-09-15 06:32] LABS: Hematocrit (blood only) 35.9 % (37.0-47.0); Hemoglobin 12.6 g/dl (12.0-16.0); Mean Corpuscular Hemoglobin 31.9 pg (25.0-34.0); Mean Corpuscular Hgb Conc 35.1 g/dL (32.0-36.0); Mean Corpuscular Volume 90.9 fL (80.0-100.0); Mean Platelet Volume 10.1 fL (9.4-12.4); Platelet Count 280 K/uL (130-400); RDW Coefficient of Variation 12.5 % (11.5-14.5); RDW Standard Deviation 40.6 fL (36.4-46.3); Red Blood Count 3.95 M/uL (4.20-5.40); White Blood Count 7.06 K/ul (4.8-10.8)
[2022-09-15 06:50] LABS: BUN Creatinine Ratio 14.5 (10-20); Creatinine Clr Calc Pharmacy 105.8 ml/min; Est GFR (African American) 119.3 ml/min; Est GFR (Non-African American) 102.9 ml/min; Potassium 3.8 mmol/L (3.5-5.1)
[2022-09-15] MEDS: INSULIN ASPART PER UNIT CHARGE SC SCH ×2 (08:37→12:46)
[2022-09-15] MEDS: SIMVASTATIN 10 MG TAB PO SCH (08:38)
[2022-09-15] MEDS: ADVANCED PROBIOTIC 1250 MG CAPSULE PO SCH (08:38)
[2022-09-15] MEDS: HEPARIN SOD 5,000 UNIT/0.5 ML VIAL SQ SCH (08:38)
[2022-09-15] MEDS: LOSARTAN POTASSIUM 25 MG TAB PO SCH (08:39)
[2022-09-15] MEDS: GABAPENTIN 600 MG TAB PO SCH ×2 (08:39→12:48)
[2022-09-15] MEDS: DULoxetine HCL 30 MG CAP PO SCH (08:39)
[2022-09-15] MEDS: AMOXICILLIN/CLAVULANATE 875 MG TAB PO SCH (08:40)
[2022-09-15] MEDS ORDERED: LANTUS PER UNIT CHARGE SQ SCH (09:00)
[2022-09-15] MEDS: VANCOMYCIN HCL 1,750 MG in SODIUM CHLORIDE 0.9% 500 ML IV SCH ×2 (12:47)
--- NOTE | 2022-09-15 13:24 | Discharge Summary ---
Date of Service September 15, 2022 Admission HPI Per Admitting Provider This is a 52-year-old female with PMHx of DM II, HTN, who presents from Dr. Mcmanus's office for infection of her right first metatarsal and distal aspect, XRay of the foot shows edema in the R first metatarsal with edema but shows possible bony abnormality of the second metatarsal head concerning for crystalline arthropathy vs acute osteomyelitis. Pt reports that last Monday (8d ago) she developed an area on her callous of the right first metatarsal head that became open and cracked. She states this has occurred in the past but normally heals. Yesterday the right forefoot region became red and swollen. She has been able to walk on it and denies neuropathy. She denies any fever, chills or sweats, but states in the past 3 days has had body aches, generalized fatigue and not felt herself. Pt called Dr. Mcmanus yesterday who saw her in the outpatient office this morning. She has been referred to the ER for antibiotic therapy. There is another area on the left foot, first metatarsal callous which is also cracked open, however isn't swollen or red. Pt is present with her at bedside, but nearly asleep. Of note, the patient has a ankle monitoring device on her left leg, states she is on probation x 4 months. She has made the precinct commanding officer aware that she is here in the hospital. Denies any tobacco use, illicit drug use, marijuana or recreational drug use, or alcohol use. Admission Exam Per Admitting Provider General: awake, alert, no apparent distress, + obese with BMI of 36.5 Head: Normocephalic, atraumatic ENT: PERRL, EOMI, no pharyngeal exudate, mucous membranes moist Chest: Clear to auscultation, on room air, no adventitious breath sounds Cardiac: Regular rate and rhythm, no murmur, no JVD, normal peripheral pulses, good capillary refill Abdominal: NABS x 4 quadrants, soft, nondistended, nontender to palpation, no rebound or guarding Extremities: R forefoot erythematous, edema over the 1st right metarsal region, + open wound on plantar surface of the foot about 1 cm in diameter, black in the middle, no purulent material draining from such, increased ecchymosis on the medial side of the foot proximal to the metatarsal head. Left foot callous is cracked, no erythema or edema. Let ankle with house arrest bracelet in place. Otherwise normal inspection, no peripheral edema or erythema, calfs nontender to palpation Psych: Normal mood and affect Neuro: AAO x 3, strength intact bilaterally and rated 5/5, no motor deficits, speech is clear, no peripheral sensory deficits Principal Diagnosis Sepsis Right foot osteomyelitis Status post surgery Discharge Exam Constitutional + well hydrated and + obese; no acute distress Eyes PERRL, conjunctivae normal, anicteric sclerae ENMT external ear and nose normal, oropharynx normal Respiratory normal respiratory effort, lungs clear to auscultation Cardiovascular RRR, no murmur, no edema Gastrointestinal (Abdomen) normal bowel sounds, soft, nontender, no hepatosplenomegaly Musculoskeletal Right foot bandaged Neurologic PERRL, EOMI, accommodation nl, no face palsy, no dysarthria Psychiatric A+Ox3, euthymic affect Discharge Data Allergies Allergy/AdvReac Type Severity Reaction Status Date / Time lisinopril Allergy Intermediate Cough Uncoded 09/07/22 14:30 Consultations 09/07/22 11:44 ED Decision to Admit Stat 09/07/22 11:56 Consult Podiatry Routine 09/09/22 09:07 Consult Infectious Diseases Routine Procedures Performed Operation Date: 09/09/22 10:55 Actual Procedures p Right Foot Removal Non Viable Bone(Right) - Frankie Mcmanus DPM, MS Ordered Studies 09/08/22 00:00 MR foot RT wo/w con Urgent Diabetes Follow up Diabetes Follow-up Needed for HgbA1c >9% Hospital Course (1) Sepsis: (2) Type 2 diabetes mellitus with right diabetic foot infection: Right foot diabetic ulcer Acute osteomyelitis-POA Foot abscess-POA -Toe X ray:Moderate soft tissue swelling without acute fracture, dislocation or osseous erosion identified within the first digit. Hallux valgus with first metatarsal head bunion. Suggestion of subtle periarticular erosions within the second metatarsal head. Correlate clinically to exclude an inflammatory or crystalline arthropathy. Acute osteomyelitis considered less likely. -MRI Foot:Findings suggestive of acute osteomyelitis within the distal phalanx of the right first toe. Additional multifocal marrow signal abnormalities, as described above. These are probably degenerative. Wound of the medial right forefoot with extensive associated cellulitis. Associated subcutaneous 3 x 1.3 cm ill-defined hypoenhancing focus. This may reflect a nonviable tissue or phlegmon. A developing abscess is within the differential although considered less likely. Hallux valgus. Moderate degenerative changes within the right midfoot and forefoot. S/P I&D, debridement of right foot diabetic ulcer, partial excision of first me tatarsal bone, first proximal phalanx bone on 09/09/22 by Blood culture: No growth to date Wound culture grew MRSA, prevotella Was treated with IV antibiotics Per Md Physician Dermatologist, had unclear margins Will need 6-week course of IV antibiotics Discussed with ID Dr Lanier. He recommended IV vancomycin and po Augmentin 875mg bid x 6 weeks and ID f/u outpatient in 4 weeks PICC was placed and CM made arrangements for IV vancomycin home infusion setup Patient to continue antibiotics till 10/20/22 PCP to monitor weekly CBC and BMP Needs to follow up with surgeon Dr Mcmanus outpatient (3) Diabetes: DM II Uncontrolled HbA1c 9.0 Reported she is not sure if she was injecting the trulicity properly DM education provided DM educator consult educated her on proper injection Continue home antidiabetic regimen including insulin, trulicity, metformin Advised to keep a home glucose log for PCP to aid with adjustments (4) Hypertension: Continue losartan (5) Obesity (BMI 30-39.9): BMI 36.5, diet and exercise to be encouraged Total Time Total Time Spent Total Time Spent (In Minutes): 50 Total Time Includes: Examination of the Patient, Discharge Planning, Medication Reconciliation and Communication With Other Providers Discharge Plan Discharge Items Patient Disposition: Home - Home Health Services Reason For Visit: DIABETIC FOOT INFECTION, POSSIBLE OSTEMYELITIS Discharge Diagnosis: Right foot osteomyelitis Status post surgery Activity: Resume your previous activity Non-emergency contact: Primary Care Provider and Surgeon Call non-emergency contact if: you have any medication questions and your symptoms worsen Follow-up/Referrals: Spencer Son D.O. [Primary Care Provider] - (Dr Son's office is aware of your discharge and will call you with an appointment for follow up. ) Frankie Mcmanus DPM, MS [Physician] - (Call for appointment) Diet: Carb Consistent or DM2 and Heart Healthy Addtl Attending Provider Instructions: Mrs Sherman You came to the hospital with foot infection You were evaluated and found to have right foot osteomyelitis. You had surgery done by Dr Mcmanus. You are being discharged on IV Vancomycin and tablet augmentin to complete 6 weeks of antibiotics treatment (Until 10/20/22) Please follow up with Infectious Disease Doctor in 4 weeks. Please do weekly CBC and BMP tests and follow up result with your Primary Doctor as we discussed. Your PICC line should be removed once you complete your IV antibiotics Optimal blood sugar control is important for healing as well. Please continue your antidiabetic regimen. Please keep a log of your home blood glucose measurements for your Primary Doctor to help with making adjustments. Please ensure follow up with your Primary Doctor and Surgeon as we discussed. It was a pleasure taking care of you. Pending Studies at Discharge: No Stand-Alone Forms: My [facility], Smoking Cessation Medications and DC Order Prescriptions: New amoxicillin-pot clavulanate 875-125 mg Tablet 1 tab PO BIDM Qty: 70 0RF Advanced Probiotic 625 mg (10 billion cell) Capsule 2 cap PO DAILY Qty: 30 0RF Continued insulin glargine [Lantus Solostar U-100 Insulin] 100 unit/mL (3 mL) insulin pen 35 unit SUBCUT BID gabapentin 600 mg tablet 600 mg PO QID simvastatin 10 mg tablet 10 mg PO DAILY metformin 1,000 mg tablet 1,000 mg PO BID losartan 25 mg tablet 25 mg PO DAILY duloxetine 30 mg capsule,delayed release(DR/EC) 30 mg PO DAILY Invokana 100 mg tablet 100 mg PO DAILY Trulicity 1.5 mg/0.5 mL pen injector 1.5 mg SUBCUT WE Rx Instructions: Takes on Monday Discontinued diclofenac sodium 50 mg tablet,delayed release (DR/EC) 50 mg PO TID Discharge Orders: Discharge Order (Routine); Ordered 09/15/22 Ordered By: Tori Myers Admission Data Admit Date/Time: 09/07/22 11:56 Attending Provider: Tori Myers I. Admit Provider: Karolina Orellana Primary Care Provider: Spencer Son Other Providers: Karolina Orellana ; Frankie Mcmanus ; Agapito Sood ; Liberty Lloyd ; Shon Lanier I. ; Luis Davis II ; Meghana Monge ; Oneal Montague ; Carlos Allen ; Wilder Chauhan ; Emeka Brandon Other Interventions: Discharge Summary Assessment (RN) Last Done: 09/15/22 14:48
== END 2022-09-15 17:04 | disposition home health service (06) | DRG 854 ==
LOC: ED 11:12 → SUATTDRO 11:56 → EDINP 11:56 → 2N 15:18